=== PATIENT | male | born 1990 | race Caucasian/White ===

== ENCOUNTER 2021-04-08 18:01 | Emergency (ER) | payer BC, SELFPAY ==
[2021-04-08] MEDS ORDERED: NA CHLORIDE 0.9% 2,000 ML ONE (19:44)
[2021-04-08] MEDS ORDERED: Ringers Lactate 1,000 ML IV ONE (20:03)
[2021-04-08 20:09] LABS: Protime INR 1.3
[2021-04-08 20:10] LABS: Absolute Lymphocytes (CBC) 0.8 K/uL (0.7-4.9); Basophils % 0.4 % (0-1.3); Hematocrit 43.5 % (39.6-49.0); Lymphocytes % 17.5 % (15.3-44.8); MPV 9.3 fL (7.6-11.3); RBC Red Blood Cell Count 5.31 M/uL (4.33-5.43)
--- NOTE | 2021-04-08 20:14 | RAD REPORT ---
EXAM DESCRIPTION: [facility] Single View04/08/2021 8:07 pm CLINICAL HISTORY: Fever COMPARISON: 2010 FINDINGS: Lungs are mildly hazy bilaterally The heart is normal size IMPRESSION: Lungs are mildly hazy bilaterally suspicious for pneumonia
[2021-04-08 20:17] LABS: Albumin 3.7 g/dL (3.4-5.0); Bilirubin Direct 0.4 mg/dL (0-0.2); Bilirubin Total 1.5 mg/dL (0.2-1.0); C-Reactive Protein 22.7 mg/L (<3.00); Potassium 3.4 mmol/L (3.5-5.1); Protein, Total 7.4 g/dL (6.4-8.2)
[2021-04-08] MEDS ORDERED: CEFTRIAXONE/SWI 1gm 1 GM/10 ML SYR ONE (21:05)
[2021-04-08] MEDS ORDERED: AZITHROMYCIN 500 MG INJ IVPB ONE (21:05)
[2021-04-08] MEDS ORDERED: NA CHLORIDE 0.9% 250 ML ONE (21:05)
--- NOTE | 2021-04-08 21:50 | EDPHYS ---
Physician Documentation [facility] Name: Adal Dunne III Age: 30 yrs Sex: Male : 1990 Arrival Date: 04/08/2021 Time: 18:07 Bed 6 Private MD: ED Physician Denys Arriaga HPI: 04/08 21:17 This 30 yrs old Male presents to ER via Ambulatory with complaints of Cough, jr8 Fever, Abdominal Pain. 21:17 The patient reports fever, not measured (subjective). Onset: The symptoms/episode jr8 began/occurred suddenly, 5 day(s) ago. Modifying factors: The patient has had contact with sick sister. Associated signs and symptoms: Pertinent positives: abdominal pain, chills, cough, nausea, vomiting, diarrhea. Severity of symptoms: At their worst the symptoms were moderate in the emergency department the symptoms are unchanged. The patient has not experienced similar symptoms in the past. The patient has not recently seen a physician. Historical: - Allergies: 18:32 No Known Allergies; tw2 - Home Meds: 18:32 None [Active]; tw2 - PMHx: 18:32 Migraines; broken great toe right; tw2 - PSHx: 18:32 None; tw2 - Immunization history:: Adult Immunizations. - Social history:: Smoking status: . ROS: 21:46 Eyes: Negative for injury, pain, redness, and discharge, ENT: Negative for injury, jr8 pain, and discharge, Neck: Negative for injury, pain, and swelling, Cardiovascular: Negative for chest pain, palpitations, and edema, Back: Negative for injury and pain, MS/Extremity: Negative for injury and deformity, Skin: Negative for injury, rash, and discoloration, Neuro: Negative for headache, weakness, numbness, tingling, and seizure. 21:46 Constitutional: Positive for chills, fever, malaise. 21:46 Respiratory: Positive for cough, shortness of breath, Negative for sputum production, wheezing. 21:46 Abdomen/GI: Positive for nausea, vomiting, and diarrhea, abdominal cramps. Exam: 21:46 Eyes: Pupils equal round and reactive to light, extra-ocular motions intact. Lids and jr8 lashes normal. Conjunctiva and sclera are non-icteric and not injected. Cornea within normal limits. Periorbital areas with no swelling, redness, or edema. ENT: Nares patent. No nasal discharge, no septal abnormalities noted. Tympanic membranes are normal and external auditory canals are clear. Oropharynx with no redness, swelling, or masses, exudates, or evidence of obstruction, uvula midline. Mucous membranes moist. Neck: Trachea midline, no thyromegaly or masses palpated, and no cervical lymphadenopathy. Supple, full range of motion without nuchal rigidity, or vertebral point tenderness. No Meningismus. 21:46 Abdomen/GI: Soft, non-tender, with normal bowel sounds. No distension or tympany. No guarding or rebound. No evidence of tenderness throughout. Back: No spinal tenderness. No costovertebral tenderness. Full range of motion. Skin: pale, cool, and moist. Normal color with no rashes, no lesions, and no evidence of cellulitis. MS/ Extremity: Pulses equal, no cyanosis. Neurovascular intact. Full, normal range of motion. Neuro: Awake and alert, GCS 15, oriented to person, place, time, and situation. Cranial nerves II-XII grossly intact. Motor strength 5/5 in all extremities. Sensory grossly intact. Cerebellar exam normal. Normal gait. 21:46 Constitutional: The patient appears alert, awake, obviously ill, uncomfortable. 21:46 Cardiovascular: Rate: tachycardic, Rhythm: regular, Pulses: Pulses are 2+ in right radial artery and left radial artery. Heart sounds: normal, normal S1and S2, no S3 or S4, Edema: is not appreciated. Vital Signs: 18:28 BP 130 / 116; Pulse 122; Resp 17; Temp 98.5(TE); Pulse Ox 96% on R/A; Weight 140.61 kg tw2 (R); Height 5 ft. 11 in. (180.34 cm); Pain 5/10; 19:45 BP 100 / 57; Pulse 93; Resp 22; Pulse Ox 100% on 4 lpm NC; ss 20:57 BP 111 / 59; Pulse 97; Resp 20; Pulse Ox 99% on 2 lpm NC; ss 18:28 Body Mass Index 43.24 (140.61 kg, 180.34 cm) tw2 MDM: 19:13 Patient medically screened. [facility] 21:46 Data reviewed: vital signs, nurses notes, lab test result(s), EKG, radiologic studies, [facility] plain films. Data interpreted: Pulse oximetry: on room air is 99 %. Interpretation: normal. Counseling: I had a detailed discussion with the patient and/or guardian regarding: the historical points, exam findings, and any diagnostic results supporting the discharge/admit diagnosis, lab results, radiology results, the need for outpatient follow up, a family practitioner, to return to the emergency department if symptoms worsen or persist or if there are any questions or concerns that arise at home. Response to treatment: the patient's symptoms have markedly improved after treatment, patient is well hydrated. ED course: Off oxygen and sating at 99% without distress. VS stable at this time. Will d/c home to f/u with PCP if needed. COVID vitamin regimen given to patient. . 04/08 19:12 Order name: BMP [facility] 04/08 19:12 Order name: C-Reactive Protein; Complete Time: 20:18 [facility] 04/08 19:12 Order name: CBC with Diff; Complete Time: 20:17 [facility] 04/08 19:12 Order name: Lactate; Complete Time: 20:17 [facility] 04/08 19:12 Order name: LFT's; Complete Time: 20:18 [facility] 04/08 19:12 Order name: Lipase; Complete Time: 20:18 [facility] 04/08 19:12 Order name: Procalcitonin; Complete Time: 20:36 [facility] 04/08 19:12 Order name: PT-INR; Complete Time: 20:17 [facility] 04/08 19:12 Order name: Ptt, Activated; Complete Time: 20:17 [facility] 04/08 19:13 Order name: Basic Metabolic Panel; Complete Time: 20:18 [facility] 04/08 19:17 Order name: Blood Culture Adult (2) 04/08 21:06 Order name: SARS-COV-2 RT PCR; Complete Time: 21:45 [facility] 04/08 19:12 Order name: CXR XRAY; Complete Time: 20:17 [facility] 04/08 19:12 Order name: EKG; Complete Time: 19:13 [facility] 04/08 19:12 Order name: Cardiac monitoring; Complete Time: 19:45 [facility] 04/08 19:12 Order name: Droplet/Contact Precautions; Complete Time: 19:45 jr04/08 19:12 Order name: EKG - Nurse/Tech; Complete Time: 20:04 04/08 19:12 Order name: IV Start; Complete Time: 19:46 04/08 19:12 Order name: Labs collected and sent; Complete Time: 19:46 04/08 19:12 Order name: O2 Per Protocol; Complete Time: 19:45 04/08 19:12 Order name: O2 Sat Monitoring; Complete Time: 19:45 Administered Medications: 19:44 Drug: Ringers - Lactated Ringers Solution 1000 ml Route: IV; Rate: bolus; Site: left ss antecubital; 20:57 Follow up: IV Status: Completed infusion; IV Intake: 1000ml ss 20:45 Drug: Rocephin (cefTRIAXone) 1 grams Route: IV; Rate: calculated rate; Site: right hand;rr5 22:12 Follow up: Response: No adverse reaction; IV Status: Completed infusion; IV Intake: 10mlem 20:51 Dru mg of (Zithromax (azithromycin) 500 mg, NS 0.9% 250 ml) Route: IVPB; Infused rr5 Over: 1 hrs; Site: right hand; 22:12 Follow up: Response: No adverse reaction; IV Status: Completed infusion; IV Intake: em 250ml 21:00 Drug: NS 0.9% 1000 ml Route: IV; Rate: 1000 ml; Site: right hand; ss 22:13 Follow up: IV Status: Completed infusion; IV Intake: 1000ml em Disposition: 04/09 07:05 Co-signature as Attending Physician, Denys Arriaga MD I agree with the assessment and kdr plan of care. Disposition: 04/08/21 21:49 Discharged to Home. Impression: SARS-associated coronavirus as the cause of diseases classified elsewhere, Dehydration. - Condition is Stable. - Discharge Instructions: Dehydration, Adult, COVID-19. - Prescriptions for Imodium A- D 2 mg Oral tablet - take 2 tablet by ORAL route as directed after 1st loose stool and 1 tablet (2 mg) after each next bowel movement; do not exceed 16 mg in 24hrs; 12 tablet. promethazine 25 mg Oral Tablet - take 1 tablet by ORAL route every 6 hours As needed; 20 tablet. - Medication Reconciliation Form, Thank You Letter, Antibiotic Education, Prescription Opioid Use form. - Follow up: Private Physician; When: 5 - 6 days; Reason: Recheck today's complaints, Continuance of care, Re-evaluation by your physician. - Problem is new. - Symptoms have improved. Signatures: Dispatcher [employer] [facility] Denys Arriaga MD MD [facility] Dre Lui RN RN em Tracie Ramesh RN RN James Do PA PA jr8 Naa Lezama RN RN tw2 Tamir Delvalle RN RN rr5 Corrections: (The following items were deleted from the chart) 04/08 19:57 19:13 CORONAVIRUS+MR.LAB.BRZ ordered. [facility] 22:14 21:49 04/08/2021 21:49 Discharged to Home. Impression: SARS-associated coronavirus as em the cause of diseases classified elsewhere; Dehydration. Condition is Stable. Forms are Medication Reconciliation Form, Thank You Letter, Antibiotic Education, Prescription Opioid Use. Follow up: Private Physician; When: 5 - 6 days; Reason: Recheck today's complaints, Continuance of care, Re-evaluation by your physician. Problem is new. Symptoms have improved. jr8
--- NOTE | 2021-04-08 21:50 | ER ---
Nurse's Notes [facility] Name: Adal Dunne III Age: 30 yrs Sex: Male : 1990 Arrival Date: 04/08/2021 Time: 18:07 Bed 6 Private MD: Diagnosis: SARS-associated coronavirus as the cause of diseases classified elsewhere;Dehydration Presentation: 04/08 18:28 Chief complaint: Patient states: i have been sick for about 5 days now. the cough has tw2 been so severe that my stomach hurts, i cant eat, i have diarrhea, i have been running fever off and on. Coronavirus screen: cough unrelated to allergies, diarrhea, difficulty breathing, fatigue, fever, muscle pain, nausea, Client presents with at least one sign or symptom that may indicate coronavirus-19. Standard/surgical mask placed on the client. Provider contacted for isolation considerations. Ebola Screen: Patient denies travel to an Ebola-affected area in the 21 days before illness onset. Initial Sepsis Screen: Does the patient meet any 2 criteria? HR > 90 bpm. Does the patient have a suspected source of infection? No. Patient's initial sepsis screen is negative. Risk Assessment: Do you want to hurt yourself or someone else? Patient reports no desire to harm self or others. Onset of symptoms was April 08, 2021. 18:28 Method Of Arrival: Ambulatory tw2 18:28 Acuity: LATIA 2 tw2 Triage Assessment: 18:32 General: Appears uncomfortable, ill, obese, Behavior is calm, cooperative, appropriate tw2 for age. Pain: Complains of pain in abdomen. EENT: Reports nasal congestion. Respiratory: Reports cough that is non-productive. GI: Reports cramping. Historical: - Allergies: 18:32 No Known Allergies; tw2 - Home Meds: 18:32 None [Active]; tw2 - PMHx: 18:32 Migraines; broken great toe right; tw2 - PSHx: 18:32 None; tw2 - Immunization history:: Adult Immunizations. - Social history:: Smoking status: . Screenin:33 Abuse screen: Denies threats or abuse. Denies injuries from another. Nutritional ss screening: No deficits noted. Tuberculosis screening: Never had TB. Fall Risk None identified. Assessment: 19:10 General: Appears uncomfortable, ill, obese, Behavior is cooperative, anxious, Reports ss chills for >3 days, fever for > 3 days, feeling ill for > 3 days, fatigue for >3 days. Pain: Complains of pain in abdomen Pain currently is 5 out of 10 on a pain scale. Quality of pain is described as "from coughing" is tender Pain began 5 days ago Is continuous, Aggravated by coughing. Cardiovascular: Capillary refill < 3 seconds is brisk in bilateral fingers Patient's skin is warm and dry. Respiratory: Reports shortness of breath on exertion since x 5 days cough that is non-productive, since x 5 days Breath sounds are diminished in left posterior lower lobe and right posterior lower lobe. GI: Bowel sounds present X 4 quads. Abd is soft X 4 quads Abdomen is tender to palpation in abdomen Reports diarrhea, nausea, Patient currently denies vomiting. : Denies burning with urination, urinary frequency. EENT: Oral mucosa is moist. Throat is clear. Derm: Skin is intact, is healthy with good turgor, Skin is dry, Skin is pale. Musculoskeletal: Range of motion: intact in all extremities. 20:35 Reassessment: Patient appears in no apparent distress at this time. awaiting for all ss test to result at this time. Patient states feeling better. Neuro: Level of Consciousness is awake. Respiratory: Respiratory effort is even, unlabored. 21:07 Reassessment: Removed NC from patient. Pt attempted to provide urine specimen at this ss time. Unable to void. Second Liter of IV fluid administered now and Water given to patient upon request. PT notified that he is COVID +, verbalizes understanding. Vital Signs: 18:28 BP 130 / 116; Pulse 122; Resp 17; Temp 98.5(TE); Pulse Ox 96% on R/A; Weight 140.61 kg tw2 (R); Height 5 ft. 11 in. (180.34 cm); Pain 5/10; 19:45 BP 100 / 57; Pulse 93; Resp 22; Pulse Ox 100% on 4 lpm NC; ss 20:57 BP 111 / 59; Pulse 97; Resp 20; Pulse Ox 99% on 2 lpm NC; ss 18:28 Body Mass Index 43.24 (140.61 kg, 180.34 cm) tw2 ED Course: 18:07 Patient arrived in ED. mr 18:19 Denys Arriaga MD is Attending Physician. kdr 18:31 Triage completed. tw2 18:33 Arm band placed on. tw2 19:09 James Do PA is PHCP. jr8 19:09 Denys Arriaga MD is Attending Physician. jr8 19:17 Tamir Delvalle, ZACHARIAH is Primary Nurse. rr5 19:20 Inserted saline lock: 20 gauge in right hand, using aseptic technique. ,using aseptic ss technique. inserted by stephenie SONI Blood collected. 19:33 Patient has correct armband on for positive identification. Bed in low position. Call ss light in reach. secured entrance monitor on. Pulse ox on. NIBP on. Warm blanket given. 19:40 Stephenie Ramesh RN is Primary Nurse. ss 19:41 Inserted saline lock: 20 gauge in left antecubital area, using aseptic technique. Blood ss collected. 20:07 CXR XRAY In Process Unspecified. EDMS 22:11 No provider procedures requiring assistance completed. Patient did not have IV access em during this emergency room visit. Administered Medications: 19:44 Drug: Ringers - Lactated Ringers Solution 1000 ml Route: IV; Rate: bolus; Site: left ss antecubital; 20:57 Follow up: IV Status: Completed infusion; IV Intake: 1000ml ss 20:45 Drug: Rocephin (cefTRIAXone) 1 grams Route: IV; Rate: calculated rate; Site: right hand;rr5 22:12 Follow up: Response: No adverse reaction; IV Status: Completed infusion; IV Intake: 10mlem 20:51 Dru mg of (Zithromax (azithromycin) 500 mg, NS 0.9% 250 ml) Route: IVPB; Infused rr5 Over: 1 hrs; Site: right hand; 22:12 Follow up: Response: No adverse reaction; IV Status: Completed infusion; IV Intake: em 250ml 21:00 Drug: NS 0.9% 1000 ml Route: IV; Rate: 1000 ml; Site: right hand; ss 22:13 Follow up: IV Status: Completed infusion; IV Intake: 1000ml em Intake: 20:57 IV: 1000ml; Total: 1000ml. ss 22:12 IV: 10ml; Total: 1010ml. em 22:12 IV: 250ml; Total: 1260ml. em 22:13 IV: 1000ml; Total: 2260ml. em Outcome: 21:49 Discharge ordered by . siobhan 22:11 Discharged to home ambulatory. em 22:11 Condition: stable 22:11 Discharge instructions given to patient, Instructed on discharge instructions, follow up and referral plans. medication usage, Demonstrated understanding of instructions, follow-up care, medications, Prescriptions given X 2. 22:14 Patient left the ED. em Signatures: Dispatcher [employer] [facility] Denys Arriaga MD MD [facility] Ann Sr Edgar, RN RN em Stephenie Ramesh, RN RN James Do PA PA jr8 Naa Lezama RN RN tw2 Tamir Delvalle RN RN rr5 Corrections: (The following items were deleted from the chart) 18:55 18:28 Acuity: LATIA 3 tw2 tw2 19:41 19:20 Inserted saline lock: 22 gauge in right hand, using aseptic technique. ,using ss aseptic technique. inserted by stephenie SONI Blood collected. rr5
[2021-04-08 22:25] VITALS: TEMP 98.5
[2021-04-08 22:29] VITALS: BP 111/59; O2SAT 99
== END 2021-04-08 22:14 | disposition home or self-care (01) ==
LOC: ER 18:01
DX: U07.1 COVID-19 (principal); E86.0 Dehydration
CPT/HCPCS: 36415; 71045; 80048; 80076; 83605; 83690; 84145; 85025; 85610; 85730; 86140; 87040; 93005; 99284; J0456; J0696; J7030; J7050; J7120; U0003

== ENCOUNTER 2021-04-09 20:15 | Inpatient (IN) | payer SELFPAY ==
[2021-04-09] MEDS ORDERED: ACETAMINOPHEN 500 MG TAB ONE (21:16)
[2021-04-09] MEDS ORDERED: NA CHLORIDE 0.9% 1,000 ML ONE (23:06)
[2021-04-09 23:14] LABS: Absolute Lymphocytes (CBC) 0.5 K/uL (0.7-4.9); Basophils % 0.5 % (0-1.3); Hematocrit 40.9 % (39.6-49.0); Lymphocytes % 12.7 % (15.3-44.8); MPV 9.1 fL (7.6-11.3); RBC Red Blood Cell Count 4.99 M/uL (4.33-5.43)
[2021-04-09 23:19] LABS: Protime INR 1.37
[2021-04-09] MEDS ORDERED: dexAMETHasone 10 MG/ML VIAL ONE (23:21)
--- NOTE | 2021-04-10 00:29 | P.HP ---
Certification for Inpatient Patient admitted to: Inpatient With expected LOS: >2 Midnights Patient will require the following post-hospital care: None Practitioner: I am a practitioner with admitting privileges, knowledge of patient current condition, hospital course, and medical plan of care. Services: Services provided to patient in accordance with Admission requirements found in Title 42 Section 412.3 of the Code of Federal Regulations Patient History Date of Service: 04/10/21 Primary Care Provider: none Reason for admission: COVID-19 pneumonia, dyspnea History of Present Illness: 30-year-old male with obesity presents emergency department for shortness of breath. Patient reports increasing shortness of breath over the course of the last 4-5 days, patient tested positive for COVID-19 on 04/09/2021 here in the emergency department but has had increasing shortness of breath and continuous fevers. Patient dyspneic, tachypneic with respiratory rate around 31 with some mild to moderate accessory muscle use, saturations in the low 90s, chest x-ray remarkable for viral pneumonia. Patient did not receive vaccine. Patient given IV steroids in the emergency department, ED provider wishes to admit for further evaluation and management . 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 moist/pink Neck: Supple, 2+ carotid pulse no bruit, No LAD Respiratory: Clear to auscultation bilaterally, Normal air movement Cardiovascular: Regular rate/rhythm, Normal S1 S2 Gastrointestinal: Normal bowel sounds, No tenderness Musculoskeletal: No tenderness Integumentary: No rashes Neurological: Normal gait, Normal speech, Normal strength at 5/5 x4 extr, Normal tone, Normal affect - Studies Laboratory Data (last 24 hrs) 04/09/21 23:00: PT 15.8 H, INR 1.37 04/09/21 23:00: WBC 3.80 L D, Hgb 14.3, Hct 40.9, Plt Count 136 L Assessment and Plan - Plan Assessment Dyspnea, tachypnea secondary to COVID-19 pneumonia Obesity Plan Dyspnea, tachypnea secondary to COVID-19 pneumonia: Continue with IV steroids, oral supplements. Pulmonology consulted, supplemental oxygen as needed to maintain saturations greater than 92%. Daily CRP/ferritin levels, will give ivermectin. Anticipate clinical improvement over the course of the next 24-48 hr. DVT prophylaxis Lovenox 40 mg subcutaneous once daily. Appreciate further input from pulmonology. Obesity: Discussed lifestyle changes. Discharge Plan: Home Plan to discharge in: 48 Hours - Advance Directives Does patient have a Living Will: No Does patient have a Durable POA for Healthcare: No - Code Status/Comfort Care Code Status Assessed: Yes (Full code) Critical Care: No Time Spent Managing Pts Care (In Minutes): 55
[2021-04-10 00:34] LABS: Albumin 3.5 g/dL (3.4-5.0); Bilirubin Direct 0.2 mg/dL (0-0.2); Bilirubin Total 0.9 mg/dL (0.2-1.0); Magnesium 1.9 mg/dL (1.8-2.4); Potassium 3.2 mmol/L (3.5-5.1); Troponin (Emerg Dept Use Only) 0.05 ng/mL (0.0-0.045)
[2021-04-10 00:56] LABS: C-Reactive Protein 36.3 mg/L (<3.00); Ferritin 475.6 ng/mL (26-388)
[2021-04-10] MEDS ORDERED: ONDANSETRON 4 MG/2 ML VIAL IV PRN (01:35)
[2021-04-10] MEDS ORDERED: ASPIRIN 81 MG CHEWABLE TABLET ONE (01:40)
[2021-04-10] MEDS ORDERED: ENOXAPARIN 100 MG/ML SYR SQ ONE (01:41)
--- NOTE | 2021-04-10 01:43 | ER ---
Nurse's Notes [facility] Name: Adal Dunne III Age: 30 yrs Sex: Male : 1990 Arrival Date: 04/09/2021 Time: 20:16 Bed 16 Private MD: Diagnosis: Other viral pneumonia Presentation: 04/09 20:31 Chief complaint: Patient states: Shortness of breath for about 3-4 days, Covid Positive vg1 results here in ED. Coronavirus screen: Client denies travel out of the [place] in the last 14 days. Coronavirus screen: Client presents with at least one sign or symptom that may indicate coronavirus-19. Standard/surgical mask placed on the client. Ebola Screen: Patient negative for fever greater than or equal to 101.5 degrees Fahrenheit, and additional compatible Ebola Virus Disease symptoms. Initial Sepsis Screen: Does the patient meet any 2 criteria? RR > 20 per min. HR > 90 bpm. Yes Does the patient have a suspected source of infection? Yes:. Risk Assessment: Do you want to hurt yourself or someone else? Patient reports no desire to harm self or others. Onset of symptoms was April 05, 2021. 20:31 Method Of Arrival: Ambulatory vg1 20:31 Acuity: LATIA 3 vg1 Triage Assessment: 20:36 General: Appears in no apparent distress. uncomfortable, Behavior is calm, cooperative. vg1 Pain: Complains of pain in chest and abdomen. Respiratory: Reports shortness of breath cough that is Onset: The symptoms/episode began/occurred about 3-4, the patient has moderate shortness of breath. Historical: - Allergies: 20:36 No Known Allergies; vg1 - Home Meds: 20:36 None [Active]; vg1 - PMHx: 20:36 broken great toe right; Migraines; vg1 - Immunization history:: Adult Immunizations up to date. - Social history:: Smoking status: Patient denies any tobacco usage or history of. Screenin:30 Abuse screen: Denies threats or abuse. Denies injuries from another. Nutritional wh screening: No deficits noted. Tuberculosis screening: No symptoms or risk factors identified. Fall Risk None identified. Assessment: 20:44 Reassessment: Pt placed on 2L NC. vg1 22:15 General: Appears in no apparent distress. Behavior is calm, cooperative, appropriate for age. Pain: Denies pain. Neuro: Level of Consciousness is awake, alert, obeys commands, Oriented to person, place, time, situation, Appropriate for age. Cardiovascular: Heart tones S1 S2 Rhythm is sinus tachycardia. Respiratory: Reports shortness of breath Airway is patent Respiratory effort is even, labored, Respiratory pattern is tachypnea Breath sounds are clear bilaterally. GI: Abdomen is round non-distended. : No signs and/or symptoms were reported regarding the genitourinary system. EENT: No signs and/or symptoms were reported regarding the EENT system. Derm: Skin is intact, is healthy with good turgor, Skin is pink, warm \T\ dry. normal. Musculoskeletal: Circulation, motion, and sensation intact. 04/10 00:00 Reassessment: Patient appears in no apparent distress at this time. No changes from previously documented assessment. Patient and/or family updated on plan of care and expected duration. Pain level reassessed. Patient is alert, oriented x 3, equal unlabored respirations, skin warm/dry/pink. Provider at bedside explaining POC need for admit. 01:30 Reassessment: Patient appears in no apparent distress at this time. Patient and/or family updated on plan of care and expected duration. Pain level reassessed. Patient is alert, oriented x 3, equal unlabored respirations, skin warm/dry/pink. Vital Signs: 04/09 20:31 BP 122 / 82; Pulse 125; Resp 26; Temp 103.1(O); Pulse Ox 93% on R/A; Weight 140.61 kg; vg1 Height 5 ft. 11 in. (180.34 cm); Pain 5/10; 23:00 BP 124 / 86; Pulse 103; Resp 30; Pulse Ox 98% on 2 lpm NC; wh 04/10 00:25 BP 124 / 89; Pulse 107; Resp 36 S; Temp 99.5(O); Pulse Ox 98% on 2 lpm NC; bb 01:38 BP 140 / 81; Pulse 105; Resp 26; Pulse Ox 96% on 2 lpm NC; wh 04/09 20:31 Body Mass Index 43.24 (140.61 kg, 180.34 cm) vg1 ED Course: 04/09 20:16 Patient arrived in ED. bp1 20:36 Triage completed. vg1 20:36 Arm band placed on. vg1 22:09 Chandni Nugent, RN is Primary Nurse. 22:13 Abram Lima PA is PHCP. cp 22:13 Renato Negron MD is Attending Physician. cp 22:30 Patient has correct armband on for positive identification. Bed in low position. Call light in reach. Side rails up X 1. monitoring manager on. Pulse ox on. NIBP on. 22:36 XRAY Chest (1 view) In Process Unspecified. EDMT 22:45 Inserted saline lock: 20 gauge in left antecubital area, using aseptic technique. Blood collected. 04/10 01:41 Jose Carlos Dumont FNP-C is Hospitalizing Provider. 01:43 No provider procedures requiring assistance completed. Patient admitted, IV remains in place. Administered Medications: 04/09 20:59 Drug: Tylenol 1000 mg Route: PO; 04/10 01:30 Follow up: Response: No adverse reaction; Temperature is decreased 04/09 23:08 Drug: NS 0.9% 1000 ml Route: IV; Rate: 1 bolus; Site: left antecubital; 04/10 01:30 Follow up: Response: No adverse reaction; IV Status: Completed infusion 04/09 23:10 Drug: Dexamethasone 10 mg Route: IVP; Site: left antecubital; 04/10 01:30 Follow up: Response: No adverse reaction 01:29 Drug: Lovenox (enoxaparin) 100 mg Route: Sub-Q; Site: left lower abdomen; 01:45 Follow up: Response: No adverse reaction 01:30 Drug: Aspirin Chewable Tablet 324 mg Route: PO; 01:45 Follow up: Response: No adverse reaction Outcome: 01:42 Decision to Hospitalize by Provider. cp 01:44 Admitted to ICU accompanied by tech, via wheelchair, room 1, with chart, Report called to Jennifer Morales RN 01:44 Condition: stable 01:44 Instructed on the need for admit. 02:36 Patient left the ED. Signatures: Dispatcher [employer] Hemalatha La RN RN Abram Lima PA PA cp Habalo, Winsy, RN RN Laly Petit RN RN vg1 Marge Retana bp1 Corrections: (The following items were deleted from the chart) 01:43 01:38 BP 140 / 81; Pulse 105bpm; Resp 24bpm; Pulse Ox 96% 2 lpm Nasal Cannula; wh wh
--- NOTE | 2021-04-10 01:43 | EDPHYS ---
Physician Documentation [facility] Name: Adal Dunne III Age: 30 yrs Sex: Male : 1990 Arrival Date: 04/09/2021 Time: 20:16 Bed 16 Private MD: ED Physician Renato Negron HPI: 04/09 22:30 This 30 yrs old Male presents to ER via Ambulatory with complaints of Covid+, cp Shortness Of Breath, Breathing Difficulty, Weakness. 22:30 The patient has shortness of breath at rest. cp 22:30 Onset: The symptoms/episode began/occurred 4 day(s) ago, and became worse today. cp Duration: The symptoms are continuous, and are steadily getting worse. Associated signs and symptoms: Pertinent positives: non-productive cough, fever, Pertinent negatives: chest pain, vomiting. Patient reports being seen in this ED yesterday and diagnosed with COVID-19. Historical: - Allergies: 20:36 No Known Allergies; vg1 - Home Meds: 20:36 None [Active]; vg1 - PMHx: 20:36 broken great toe right; Migraines; vg1 - Immunization history:: Adult Immunizations up to date. - Social history:: Smoking status: Patient denies any tobacco usage or history of. ROS: 22:35 Constitutional: Positive for fever, Negative for poor PO intake. cp 22:35 Eyes: Negative for injury, pain, redness, and discharge. cp 22:35 ENT: Negative for ear pain, sore throat, difficulty swallowing, difficulty handling secretions. 22:35 Cardiovascular: Negative for chest pain, edema, palpitations. 22:35 Respiratory: Positive for cough, shortness of breath. 22:35 Abdomen/GI: Negative for abdominal pain, vomiting, diarrhea, constipation. 22:35 Skin: Negative for rash. 22:35 Neuro: Negative for altered mental status, headache, syncope, weakness. 22:35 All other systems are negative. Exam: 22:40 Constitutional: The patient appears in no acute distress, alert, awake, cp non-diaphoretic, non-toxic, well developed, well nourished, obese. 22:40 Head/Face: Normocephalic, atraumatic. cp 22:40 Eyes: Periorbital structures: appear normal, Conjunctiva: normal, no exudate, no injection, Sclera: no appreciated abnormality, Lids and lashes: appear normal, bilaterally. 22:40 ENT: External ear(s): are unremarkable, Nose: is normal, Mouth: Lips: moist, Oral mucosa: moist, Posterior pharynx: Airway: no evidence of obstruction, patent. 22:40 Neck: ROM/movement: is normal, is supple, no meningismus, no nuchal rigidity. 22:40 Chest/axilla: Inspection: normal, Palpation: is normal, no crepitus, no tenderness. 22:40 Cardiovascular: Rate: tachycardic, Rhythm: regular, Edema: is not appreciated, JVD: is not appreciated. 22:40 Respiratory: mild respiratory distress is noted, Respirations: intercostal retractions, are absent, shallow respirations, that is mild, Breath sounds: bronchial sounds, that are mild, are heard diffusely, stridor, is not appreciated, wheezing: is not appreciated. 22:40 Abdomen/GI: Inspection: abdomen appears normal, Palpation: abdomen is soft and non-tender, in all quadrants. 22:40 Skin: no rash present. 22:40 Neuro: Orientation: to person, place \T\ time. Mentation: is normal, Motor: moves all fours, strength is normal, Sensation: is normal. 23:00 ECG was reviewed by the Attending Physician. Vital Signs: 20:31 BP 122 / 82; Pulse 125; Resp 26; Temp 103.1(O); Pulse Ox 93% on R/A; Weight 140.61 kg; vg1 Height 5 ft. 11 in. (180.34 cm); Pain 5/10; 23:00 BP 124 / 86; Pulse 103; Resp 30; Pulse Ox 98% on 2 lpm NC; 04/10 00:25 BP 124 / 89; Pulse 107; Resp 36 S; Temp 99.5(O); Pulse Ox 98% on 2 lpm NC; bb 01:38 BP 140 / 81; Pulse 105; Resp 26; Pulse Ox 96% on 2 lpm NC; 04/09 20:31 Body Mass Index 43.24 (140.61 kg, 180.34 cm) vg1 MDM: 04/09 22:16 Patient medically screened. 04/10 01:45 Data reviewed: vital signs, nurses notes. 01:45 Test interpretation: by ED physician or midlevel provider: ECG, plain radiologic cp studies. 01:45 Response to treatment: the patient's symptoms have mildly improved after treatment, and cp as a result, I will admit patient. Physician consultation: Jose Carlos Dumont ДМИТРИЙ was called at 00:30, was contacted at 00:30, regarding admission, to the telemetry unit. patient's condition, and will see patient in ED, shortly. 04/09 22:27 Order name: Basic Metabolic Panel 04/09 22:27 Order name: CBC with Diff; Complete Time: 00:25 cp 04/09 22:27 Order name: LFT's; Complete Time: 01: cp 04/09 22:27 Order name: Magnesium; Complete Time: : 04/09 22:27 Order name: NT PRO-BNP; Complete Time: 01: cp 04/09 22:27 Order name: PT-INR; Complete Time: 00:25 04/09 22:27 Order name: Troponin (emerg Dept Use Only); Complete Time: 01: 04/09 22:28 Order name: Basic Metabolic Panel; Complete Time: 01:01 EDNM 04/09 22:50 Order name: D-Dimer 04/09 22:52 Order name: CRP 04/09 23:05 Order name: D-Dimer; Complete Time: 00:25 EDNM 04/09 22:17 Order name: XRAY Chest (1 view) 04/09 22:27 Order name: EKG; Complete Time: 22:28 04/09 22:27 Order name: Cardiac monitoring; Complete Time: 23: 04/09 22:27 Order name: EKG - Nurse/Tech; Complete Time: 23:11 cp 04/09 22:27 Order name: IV Saline Lock; Complete Time: 23:11 cp 04/09 22:27 Order name: Labs collected and sent; Complete Time: 23: cp 04/09 22:27 Order name: O2 Per Protocol; Complete Time: 23:11 cp 04/09 22:27 Order name: O2 Sat Monitoring; Complete Time: 23:11 cp 04/09 23:05 Order name: C-Reactive Protein; Complete Time: 01:01 EDNM 04/09 23:05 Order name: Ferritin; Complete Time: :01 EDMS 04/10 00:05 Order name: CT Chest For PE Angio cp EC/11 23:00 Rate is 114 beats/min. Rhythm is regular. WI interval is normal. QRS interval is cp normal. QT interval is normal. Interpreted by me. Reviewed by me. Administered Medications: 20:59 Drug: Tylenol 1000 mg Route: PO; 04/10 01:30 Follow up: Response: No adverse reaction; Temperature is decreased 04/09 23:08 Drug: NS 0.9% 1000 ml Route: IV; Rate: 1 bolus; Site: left antecubital; 04/10 01:30 Follow up: Response: No adverse reaction; IV Status: Completed infusion 04/09 23:10 Drug: Dexamethasone 10 mg Route: IVP; Site: left antecubital; 04/10 01:30 Follow up: Response: No adverse reaction 01:29 Drug: Lovenox (enoxaparin) 100 mg Route: Sub-Q; Site: left lower abdomen; 01:45 Follow up: Response: No adverse reaction :30 Drug: Aspirin Chewable Tablet 324 mg Route: PO; 01:45 Follow up: Response: No adverse reaction Disposition: 06:23 Co-signature as Attending Physician, Renato Negron MD. [email or web address] Disposition: 04/10/21 01:42 Hospitalization ordered by Jose Carlos Dumont for Inpatient Admission. Preliminary diagnosis is Other viral pneumonia. - Bed requested for Intensive Care Unit. - Status is Inpatient Admission. - Condition is Stable. - Problem is an ongoing problem. - Symptoms have improved. Signatures: Dispatcher [employer] EDNM Hemalatha Dial RN RN bb Attema, Lee, FNP-C [facility] Abram Lima PA PA cp Garcia, Cindy, RN RN Chandni Nugent RN RN Laly Petit RN RN vg1 Renato Negron MD MD [email or web address] Corrections: (The following items were deleted from the chart) 04/09 23:05 22:50 D-Dimer ordered. EDNM EDNM 23:05 22:50 FERRITIN+C.LAB.BRZ ordered. EDNM EDNM 23:05 22:52 C-Reactive Protein ordered. EDNM EDNM 04/10 01:44 01:42 Hospitalization Ordered by Jose Carlos Attema [facility] for Inpatient Admission. Preliminary cg diagnosis is Other viral pneumonia. Bed requested for Telemetry/MedSurg (Inpatient). Status is Inpatient Admission. Condition is Stable. Problem is an ongoing problem. Symptoms have improved. cp 02:36 01:44 04/10/2021 01:42 Hospitalization Ordered by Jose Carlos CHOE for Inpatient Admission. Preliminary diagnosis is Other viral pneumonia. Bed requested for Intensive Care Unit. Status is Inpatient Admission. Condition is Stable. Problem is an ongoing problem. Symptoms have improved. cg
[2021-04-10] MEDS ORDERED: POTASSIUM 25 MEQ EFFERV TAB PO ONE (02:07)
[2021-04-10] MEDS: MELATONIN 5 MG TABLET PO PRN ×2 (03:15→21:15)
[2021-04-10] MEDS: BENZONATATE 100 MG CAP PO PRN ×3 (03:15→21:15)
[2021-04-10] MEDS ORDERED: MELATONIN 5 MG TABLET PO ONE (03:31)
[2021-04-10] MEDS ORDERED: POTASSIUM 25 MEQ EFFERV TAB ONE (03:31)
[2021-04-10] MEDS ORDERED: BENZONATATE 100 MG CAP PO ONE (03:32)
[2021-04-10 03:52] VITALS: BMI 51.5
[2021-04-10 05:22] LABS: Absolute Lymphocytes (CBC) 0.3 K/uL (0.7-4.9); Basophils % 0.2 % (0-1.3); Hematocrit 40.9 % (39.6-49.0); RBC Red Blood Cell Count 4.93 M/uL (4.33-5.43)
[2021-04-10 05:44] LABS: ALT/SGPT 51 U/L (12-78); AST/SGOT 85 U/L (15-37); Albumin 3.4 g/dL (3.4-5.0); Alkaline Phosphatase 59 U/L (45-117); BUN Blood Urea Nitrogen 10 mg/dL (7-18); Bicarbonate 26 mmol/L (21-32); Bilirubin Total 0.9 mg/dL (0.2-1.0); Ferritin 443.4 ng/mL (26-388); Glucose Level 152 mg/dL (74-106); Potassium 4.1 mmol/L (3.5-5.1); Protein, Total 6.5 g/dL (6.4-8.2); Sodium Level 140 mmol/L (136-145); Troponin I 0.04 ng/mL (0.0-0.045)
--- NOTE | 2021-04-10 05:55 | P.PN ---
Subjective Date of Service: 04/10/21 Primary Care Provider: none Chief Complaint: COVID-19 pneumonia, dyspnea Subjective: Other (Patient recently diagnosed with Covid 19. T-max 103.1. Fever resolved. Still with slight cough. Patient given IV fluid in the emergency room.) Physical Examination - Vital Signs Temperature: 99.5 F Blood Pressure: 140/81 Pulse: 105 Respirations: 26 - Studies Laboratory Data (last 24 hrs) 04/09/21 23:00: PT 15.8 H, INR 1.37 04/09/21 23:00: WBC 3.80 L D, Hgb 14.3, Hct 40.9, Plt Count 136 L 04/09/21 23:00: Sodium 140, Potassium 3.2 L, BUN 11, Creatinine 1.06, Glucose 105, Magnesium 1.9, Total Bilirubin 0.9, AST 92 H, ALT 51, Alkaline Phosphatase 64 Assessment & Plan Discharge Plan: Home Plan to discharge in: 48 Hours Physician Review Additional Text: Physical Exam: GENERAL: The patient is a well-developed. patient alert oriented x3. Patient appears dry. VITAL SIGNS: Reviewed HEENT: Nares patent. Dry mucous membranes NECK: Supple. No carotid bruits. No lymphadenopathy or thyromegaly. LUNGS: Decreased at the bases bilateral. HEART: Regular rate and rhythm, no appreciable gallops, rubs, murmurs or extra heart sounds ABDOMEN: Soft, nontender, and nondistended. Positive bowel sounds. No hepatosplenomegaly was noted. EXTREMITIES: Without any cyanosis, clubbing, rash, lesions or peripheral edema. NEUROLOGIC: The patient is oriented to person, place and time. Strength and sensation are grossly intact. Face is symmetric. SKIN: Normal color, turgor and temperature. No ulcerations or rashes noted. Impression: Dyspnea, tachypnea with hypoxia secondary to bilateral COVID19 pneumonia Suspect underlying obstructive sleep apnea Hyperglycemia suspect prediabetes Morbid obesity, BMI 51.5 Plan: Dyspnea, tachypnea with hypoxia secondary to bilateral COVID19 pneumonia: Patient currently on 2 L per nasal cannula. Continue to monitor CRP and ferritin. Recheck chest x-ray tomorrow. Encourage incentive spirometer. Encourage proning. Patient on DVT prophylaxisLovenox. Continue IV Solu-Medrol and vitamin supplementation. Likely no need for remdesivir at this time. Will set up for home oxygen as the patient will likely require this at discharge. Anticipate improvement over the next 24 hours likely discharge tomorrow if improved. Will discuss with pulmonology. Suspect underlying obstructive sleep apnea: Patient may have underlying sleep apnea. This can be further evaluated as an outpatient. Will discuss with pulmonology. Hyperglycemia suspect prediabetes: Blood sugar was slightly elevated today likely from IV steroids. Will check hemoglobin A1c. Morbid obesity, BMI 51.5: Lifestyle modification education provided. Code Status: Full Code DVT prophylaxis: Lovenox Advanced Care Planning-30 minutes: Plan of care for the patient's discharge was discussed in detail with the patient. Patient desires to go home at discharge. Time Spent Managing Pts Care (In Minutes): 55
[2021-04-10 06:02] LABS: Urine Appearance CLEAR (Clear); Urine Bilirubin NEGATIVE (Negative); Urine Blood TRACE (Negative); Urine Color DK YELLOW (Yellow); Urine Glucose NEGATIVE (Negative); Urine Protein 2+ (Negative); Urine Specific Gravity >=1.030 (1.005-1.030); Urine Urobilinogen 0.2 mg/dL (0.2-1.0)
[2021-04-10 06:12] LABS: Urine Microscopic Reflex ORDER UMIC
[2021-04-10 06:13] LABS: Urine Bacteria 20-50 /HPF (NONE SEEN); Urine Mucus 1+ /HPF (NONE SEEN)
--- NOTE | 2021-04-10 08:26 | RAD REPORT ---
EXAM DESCRIPTION: RAD - Chest Single View - 04/09/2021 10:36 pm CLINICAL HISTORY: Cough;SOB, COVID positive COMPARISON: Portable April 08 TECHNIQUE: AP portable chest image was obtained 04/09/2021 10:36 pm . FINDINGS: Lung volumes are low. Patchy airspace opacification is seen scattered in the lung parenchy ma. Pattern is similar or slightly less prominent compared to the April 08 study. Heart and vasculatur e are normal. No measurable pleural effusion and no pneumothorax. No acute bony abnormality seen. No acute aortic findings suspected. IMPRESSION: Mild bilateral COVID-19 pneumonia pattern similar or slightly less prominent than March 30 0.
[2021-04-10] MEDS: IVERMECTIN 3 MG TABLET PO SCH (08:28)
[2021-04-10] MEDS: ASPIRIN EC 81 MG TAB PO SCH (08:28)
[2021-04-10] MEDS: THIAMINE HCL 100 MG TABLET PO SCH (08:28)
[2021-04-10] MEDS: VITAMIN D 1000 UNIT TAB PO SCH (08:28)
[2021-04-10] MEDS: ZINC SULFATE 220 MG CAP PO SCH (08:28)
[2021-04-10] MEDS: METHYLPREDNISOLONE 125 MG INJ IV SCH ×2 (08:29→21:00)
[2021-04-10] MEDS: ENOXAPARIN 40 MG/0.4 ML SQ SCH (08:29)
[2021-04-10] MEDS: ASCORBIC ACID 500 MG TABLET PO SCH ×4 (09:00→21:15)
[2021-04-10] MEDS: ACETAMINOPHEN 500 MG TAB PO PRN ×2 (10:36→16:58)
--- NOTE | 2021-04-10 10:40 | P.PN ---
Subjective Date of Service: 04/10/21 Primary Care Provider: none Chief Complaint: COVID-19 pneumonia, dyspnea Patient is 30 years of age been sick for about a week admitted with thorpe virus pneumonia in complaining of cough fever chills or body weakness the saturation is satisfactory still has significant coughing spell Review of Systems General: Weakness Respiratory: Cough, Shortness of Breath Physical Examination - Vital Signs Temperature: 99.4 F Blood Pressure: 115/77 Pulse: 106 Respirations: 28 Pulse Ox (%): 98 - Studies Laboratory Data (last 24 hrs) 04/09/21 23:00: PT 15.8 H, INR 1.37 04/09/21 23:00: WBC 3.80 L D, Hgb 14.3, Hct 40.9, Plt Count 136 L 04/09/21 23:00: Sodium 140, Potassium 3.2 L, BUN 11, Creatinine 1.06, Glucose 105, Magnesium 1.9, Total Bilirubin 0.9, AST 92 H, ALT 51, Alkaline Phosphatase 64 Assessment & Plan - Problems (Diagnosis) (1) Acute respiratory failure due to severe acute respiratory syndrome coronavirus 2 (SARS-CoV-2) infection Current Visit: Yes Status: Acute Plan: Patient is 30 years of age admitted with respiratory failure from thorpe virus he does have bilateral pneumonia hemodynamically stable oxygenation satisfactory still has significant coughing spells possible discharge tomorrow on oxygen continue with high doses of steroids in ivermectin agree with present therapy
[2021-04-10] MEDS ORDERED: NA CHLORIDE 0.9% 500 ML IV SCH (17:02)
[2021-04-10] MEDS ORDERED: NA CHLORIDE 0.9% 0 ML ONE (17:26)
[2021-04-10] MEDS ORDERED: NA CHLORIDE 0.9% 1,000 ML IV ONE (20:43)
[2021-04-10] MEDS ORDERED: ACETAMINOPHEN 500 MG TAB PO ONE (20:43)
[2021-04-10] MEDS ORDERED: METHYLPREDNISOLONE 40 MG INJ ONE (21:30)
--- NOTE | 2021-04-10 21:40 | RAD REPORT ---
EXAM DESCRIPTION: CT - Chest For Pe Angio - 04/10/2021 6:34 am COMPARISON: None. CLINICAL HISTORY: Cough;SOB TECHNIQUE: CT images through the chest with IV contrast using the pulmonary embolus protocol. Multip lanar reformats. Automated exposure control was utilized on this examination as a dose lowering techn ique. FINDINGS: Pulmonary arteries and vascular: Suboptimal bolus timing. No filling defects. Heart and mediastinum: Heart size is normal. Mediastinal lymph nodes are increased in number but not in size and are likely reactive. Thyroid gland: Visualized portions are normal. Lungs: Multifocal bilateral consolidations are present. Airways: No filling defects. No bronchiectasis. Pleura: No pneumothorax. No significant pleural effusion. Subphrenic structures: Within normal limits. Musculoskeletal and soft tissues: Within normal limits for age. IMPRESSION: 1. No evidence of large proximal pulmonary embolus. Limited evaluation for branch emboli due to suboptimal bolus timing. 2. Commonly reported imaging features of COVID-19 pneumonia are present. Other processes such as in fluenza pneumonia and organizing pneumonia, as can be seen with drug toxicity and connective tissue d isease, can cause similar imaging pattern. Electronically signed by: Sixto Ibrahim MD 04/10/2021 1:50 AM CDT Due to temporary technical issues with the PACS/Fluency reporting system, reports are being signed by the in house radiologists without review as a courtesy to insure prompt reporting. The interpreting radiologist is fully responsible for the content of the report.
[2021-04-11 06:00] LABS: Absolute Lymphocytes (CBC) 0.5 K/uL (0.7-4.9); Basophils % 0.1 % (0-1.3); Hematocrit 39.6 % (39.6-49.0); Lymphocytes % 9.7 % (15.3-44.8); MPV 9.3 fL (7.6-11.3); RBC Red Blood Cell Count 4.76 M/uL (4.33-5.43)
[2021-04-11 06:31] LABS: ALT/SGPT 48 U/L (12-78); AST/SGOT 85 U/L (15-37); Albumin 3.1 g/dL (3.4-5.0); Alkaline Phosphatase 52 U/L (45-117); BUN Blood Urea Nitrogen 12 mg/dL (7-18); Bicarbonate 27 mmol/L (21-32); Bilirubin Total 0.7 mg/dL (0.2-1.0); Ferritin 554.7 ng/mL (26-388); Glucose Level 134 mg/dL (74-106); Magnesium 2.2 mg/dL (1.8-2.4); Potassium 3.9 mmol/L (3.5-5.1); Protein, Total 6.5 g/dL (6.4-8.2); Sodium Level 139 mmol/L (136-145)
[2021-04-11] MEDS: ACETAMINOPHEN 500 MG TAB PO PRN (07:48)
[2021-04-11] MEDS: ASCORBIC ACID 500 MG TABLET PO SCH ×4 (07:49→20:37)
[2021-04-11] MEDS: BENZONATATE 100 MG CAP PO PRN ×2 (07:49→16:29)
[2021-04-11] MEDS: VITAMIN D 1000 UNIT TAB PO SCH (07:49)
[2021-04-11] MEDS: ZINC SULFATE 220 MG CAP PO SCH (07:49)
[2021-04-11] MEDS: ASPIRIN EC 81 MG TAB PO SCH (07:49)
[2021-04-11] MEDS: ENOXAPARIN 40 MG/0.4 ML SQ SCH (07:49)
[2021-04-11] MEDS: THIAMINE HCL 100 MG TABLET PO SCH (07:49)
[2021-04-11] MEDS: METHYLPREDNISOLONE 125 MG INJ IV SCH ×3 (07:56→20:37)
[2021-04-11 08:07] LABS: Blood Morphology Comment NOT SEEN (NOT SEEN); Platelet Estimate ADEQ
--- NOTE | 2021-04-11 09:00 | P.PN ---
Subjective Date of Service: 04/11/21 Primary Care Provider: none Chief Complaint: COVID-19 pneumonia, dyspnea Subjective: Other (Patient had T-max 103. Patient had increase oxygen requirement. Patient received IV fluids yesterday due to tachycardia and fever.) Physical Examination - Vital Signs Temperature: 103 F Blood Pressure: 116/75 Pulse: 114 Respirations: 33 Pulse Ox (%): 93 Assessment & Plan Discharge Plan: Home Plan to discharge in: Greater than 2 days Physician Review Additional Text: CT Scan: FINDINGS: Pulmonary arteries and vascular: Suboptimal bolus timing. No filling defects. Heart and mediastinum: Heart size is normal. Mediastinal lymph nodes are increased in number but not in size and are likely reactive. Thyroid gland: Visualized portions are normal. Lungs: Multifocal bilateral consolidations are present. Airways: No filling defects. No bronchiectasis. Pleura: No pneumothorax. No significant pleural effusion. Subphrenic structures: Within normal limits. Musculoskeletal and soft tissues: Within normal limits for age. IMPRESSION: 1. No evidence of large proximal pulmonary embolus. Limited evaluation for branch emboli due to suboptimal bolus timing. 2. Commonly reported imaging features of COVID-19 pneumonia are present. Other processes such as influenza pneumonia and organizing pneumonia, as can be seen with drug toxicity and connective tissue disease, can cause similar imaging pattern. Physical Exam: GENERAL: The patient is a well-developed. patient alert oriented x3. Patient appears dry. VITAL SIGNS: Reviewed HEENT: Nares patent. Dry mucous membranes NECK: Supple. No carotid bruits. No lymphadenopathy or thyromegaly. LUNGS: Decreased at the bases bilateral. HEART: Regular rate and rhythm, no appreciable gallops, rubs, murmurs or extra heart sounds ABDOMEN: Soft, nontender, and nondistended. Positive bowel sounds. No hepatosplenomegaly was noted. EXTREMITIES: Without any cyanosis, clubbing, rash, lesions or peripheral edema. NEUROLOGIC: The patient is oriented to person, place and time. Strength and sensation are grossly intact. Face is symmetric. SKIN: Normal color, turgor and temperature. No ulcerations or rashes noted. Impression: Dyspnea, tachypnea with hypoxia secondary to bilateral COVID19 pneumonia Suspect underlying obstructive sleep apnea Hyperglycemia suspect prediabetes Morbid obesity, BMI 51.5 Plan: Dyspnea, tachypnea with hypoxia secondary to bilateral COVID19 pneumonia: Patient with T-max of 103. Increase oxygen requirement noted. Currently on 3 L per nasal cannula. Patient may require high flow if this persist. CRP shows slight improvement. Ferritin level showed slight increase to 554. Chest x-ray obtained. No significant improvement noted. Will discuss with pulmonology about the possibility of starting remdesivir. Continue IV Solu-Medrol, vitamin supplementation. Provide medication for fever, cough. Encourage proning, encourage incentive spirometer. We will continue to monitor the patient closely. Anticipated discharge within the next 3 days. I will turn the service over to the hospitalist team tomorrow. I will go plan of care with him. Suspect underlying obstructive sleep apnea: Patient may have underlying sleep apnea. This can be further evaluated as an outpatient. Will discuss with pulmonology. Patient may require CPAP at night Hyperglycemia suspect prediabetes: Hemoglobin A1c 5.5. Blood sugar was slightly elevated today likely from IV steroids. We will monitor this closely. Morbid obesity, BMI 51.5: Lifestyle modification education provided. Code Status: Full Code DVT prophylaxis: Lovenox Advanced Care Planning-30 minutes: Plan of care for the patient's discharge was discussed in detail with the patient. Patient desires to go home at discharge. Time Spent Managing Pts Care (In Minutes): 55
[2021-04-11] MEDS ORDERED: REMDESIVIR (EUA) 200 MG in NA CHLORIDE 0.9% 250 ML IV ONE (11:00)
--- NOTE | 2021-04-11 12:23 | RAD REPORT ---
EXAM DESCRIPTION: RAD - Chest Single View - 04/11/2021 7:05 am CLINICAL HISTORY: follow up COVID pneumonia Chest pain. COMPARISON: Chest Single View dated 04/09/2021; Chest Single View dated 04/08/2021; CHEST SINGLE VIEW dated 12/23/2010 FINDINGS: Portable technique limits examination quality. Little overall change is seen in bilateral pulmonary interstitial lung opacities since 04/09/2021. Th e heart is normal in size. No displaced fractures. IMPRESSION: Stable chest since 04/09/2021.
[2021-04-11] MEDS ORDERED: POTASSIUM CL SA 10 MEQ TAB PO ONE (12:42)
[2021-04-11] MEDS: MELATONIN 5 MG TABLET PO PRN (20:37)
[2021-04-12 05:38] LABS: Absolute Lymphocytes (CBC) 0.5 K/uL (0.7-4.9); Basophils % 0.1 % (0-1.3); Hematocrit 38.1 % (39.6-49.0); Lymphocytes % 9.1 % (15.3-44.8); MPV 8.9 fL (7.6-11.3); RBC Red Blood Cell Count 4.64 M/uL (4.33-5.43)
[2021-04-12 05:52] LABS: ALT/SGPT 55 U/L (12-78); AST/SGOT 106 U/L (15-37); Albumin 3.1 g/dL (3.4-5.0); Alkaline Phosphatase 51 U/L (45-117); BUN Blood Urea Nitrogen 14 mg/dL (7-18); Bicarbonate 28 mmol/L (21-32); Bilirubin Direct 0.2 mg/dL (0-0.2); Ferritin 583.5 ng/mL (26-388); Glucose Level 148 mg/dL (74-106); Magnesium 2.3 mg/dL (1.8-2.4); Potassium 3.8 mmol/L (3.5-5.1); Protein, Total 6.4 g/dL (6.4-8.2); Sodium Level 140 mmol/L (136-145)
[2021-04-12] MEDS: ENOXAPARIN 40 MG/0.4 ML SQ SCH (07:57)
[2021-04-12] MEDS: ASPIRIN EC 81 MG TAB PO SCH (07:57)
[2021-04-12] MEDS: ZINC SULFATE 220 MG CAP PO SCH (07:58)
[2021-04-12] MEDS: THIAMINE HCL 100 MG TABLET PO SCH (07:58)
[2021-04-12] MEDS: METHYLPREDNISOLONE 125 MG INJ IV SCH ×3 (07:58→20:51)
[2021-04-12] MEDS: ASCORBIC ACID 500 MG TABLET PO SCH ×4 (07:58→20:51)
[2021-04-12] MEDS: VITAMIN D 1000 UNIT TAB PO SCH (07:58)
[2021-04-12] MEDS: IVERMECTIN 3 MG TABLET PO SCH (07:59)
[2021-04-12] MEDS: REMDESIVIR (EUA) 100 MG in NA CHLORIDE 0.9% 250 ML IV SCH (08:23)
--- NOTE | 2021-04-12 12:29 | P.PN ---
Subjective Date of Service: 04/12/21 Patient is clinically still tachypneic and short of breath. Still requiring high-flow oxygen. Review of Systems 10-point ROS is otherwise unremarkable Physical Examination - Vital Signs Temperature: 98.7 F Blood Pressure: 120/72 Pulse: 93 Respirations: 18 Pulse Ox (%): 89 - Physical Exam General: Alert, In no apparent distress Respiratory: Diminished, Rhonchi/gurgles Cardiovascular: Regular rate/rhythm, Normal S1 S2, Systolic murmur Gastrointestinal: Normal bowel sounds, Soft and benign, Non-distended, No tenderness Musculoskeletal: No tenderness Integumentary: No rashes Neurological: Sensation intact, Cranial nerves 3-12 intact - Studies Medications List Reviewed: Yes Assessment & Plan - Problems (Diagnosis) (1) Acute respiratory failure due to severe acute respiratory syndrome coronavirus 2 (SARS-CoV-2) infection Current Visit: Yes Status: Acute - Plan 1. Continue with IV steroids 2. Monitor inflammatory markers 3. Repeat chest x-ray if symptoms are progressively worsening 4. O2 per protocol 5. Pulmonary consultation 6. Continue with albuterol inhaler therapy; also supportive care 7. Monitor LFTs 8. Patient is hypoxic and would benefit from remdesivir 9. GI and DVT prophylaxis Discharge Plan: Home Plan to discharge in: Greater than 2 days - Advance Directives Does patient have a Living Will: No Does patient have a Durable POA for Healthcare: No
--- NOTE | 2021-04-12 16:51 | P.PN ---
Subjective Date of Service: 04/12/21 Primary Care Provider: none Chief Complaint: Respiratory failure Patient's condition is deteriorated requiring more oxygen more coughing spells the change to high-flow today Review of Systems General: Weakness Respiratory: Shortness of Breath Physical Examination - Vital Signs Temperature: 98.7 F Blood Pressure: 120/72 Pulse: 93 Respirations: 18 Pulse Ox (%): 89 - Studies Medications List Reviewed: Yes Assessment & Plan - Problems (Diagnosis) (1) Acute respiratory failure due to severe acute respiratory syndrome coronavirus 2 (SARS-CoV-2) infection Current Visit: Yes Status: Acute Plan: Respiratory failure requiring high concentration of oxygen now I am going to give him a dose of Actemra continue with ivermectin and high doses of steroids chemistries reviewed change to high-flow oxygen and may need a BiPAP chest x-ray so far looks clear full anticoagulation
[2021-04-12] MEDS ORDERED: TOCILIZUMAB 800 MG in NA CHLORIDE 0.9% 60 ML IV ONE (17:15)
[2021-04-12] MEDS: APIXABAN 5 MG TABLET PO SCH (20:51)
[2021-04-12] MEDS: MELATONIN 5 MG TABLET PO PRN (20:51)
[2021-04-12] MEDS: BENZONATATE 100 MG CAP PO PRN (20:51)
[2021-04-13 04:38] LABS: Absolute Lymphocytes (CBC) 0.6 K/uL (0.7-4.9); Hematocrit 40.4 % (39.6-49.0); Lymphocytes % 9.6 % (15.3-44.8); MPV 8.8 fL (7.6-11.3); RBC Red Blood Cell Count 4.85 M/uL (4.33-5.43)
[2021-04-13 05:42] LABS: ALT/SGPT 64 U/L (12-78); AST/SGOT 87 U/L (15-37); Albumin 2.9 g/dL (3.4-5.0); Alkaline Phosphatase 50 U/L (45-117); BUN Blood Urea Nitrogen 18 mg/dL (7-18); Bicarbonate 29 mmol/L (21-32); Bilirubin Direct 0.3 mg/dL (0-0.2); Bilirubin Total 0.9 mg/dL (0.2-1.0); C-Reactive Protein 8.95 mg/L (<3.00); Ferritin 557.8 ng/mL (26-388); Glucose Level 157 mg/dL (74-106); Magnesium 2.6 mg/dL (1.8-2.4); Potassium 3.8 mmol/L (3.5-5.1); Protein, Total 6.4 g/dL (6.4-8.2); Sodium Level 141 mmol/L (136-145)
[2021-04-13] MEDS: METHYLPREDNISOLONE 125 MG INJ IV SCH ×3 (08:08→20:45)
[2021-04-13] MEDS: APIXABAN 5 MG TABLET PO SCH ×2 (08:08→20:45)
[2021-04-13] MEDS: ASPIRIN EC 81 MG TAB PO SCH (08:08)
[2021-04-13] MEDS: VITAMIN D 1000 UNIT TAB PO SCH (08:08)
[2021-04-13] MEDS: ASCORBIC ACID 500 MG TABLET PO SCH ×4 (08:08→20:45)
[2021-04-13] MEDS: ZINC SULFATE 220 MG CAP PO SCH (08:08)
[2021-04-13] MEDS: THIAMINE HCL 100 MG TABLET PO SCH (08:08)
[2021-04-13] MEDS: REMDESIVIR (EUA) 100 MG in NA CHLORIDE 0.9% 250 ML IV SCH (08:45)
[2021-04-13] MEDS ORDERED: POTASSIUM CL SA 10 MEQ TAB PO ONE (08:58)
--- NOTE | 2021-04-13 12:24 | P.PN ---
Subjective Date of Service: 04/13/21 Primary Care Provider: none Chief Complaint: Respiratory failure Patient is not doing well still requiring high concentrations of oxygen Actemra is pending Review of Systems General: Weakness Respiratory: Cough, Shortness of Breath Physical Examination - Vital Signs Temperature: 98.1 F Blood Pressure: 154/90 Pulse: 74 Respirations: 24 Pulse Ox (%): 91 - Studies Medications List Reviewed: Yes Assessment & Plan - Problems (Diagnosis) (1) Acute respiratory failure due to severe acute respiratory syndrome coronavirus 2 (SARS-CoV-2) infection Current Visit: Yes Status: Acute Plan: Respiratory failure continue with present therapy continue with high-dose steroids Actemra and Remdesmir at low-dose spironolactone blood pressure is little elevated labs reviewed
[2021-04-13] MEDS: BENZONATATE 100 MG CAP PO PRN ×2 (15:33→23:33)
[2021-04-13] MEDS: MELATONIN 5 MG TABLET PO PRN (20:45)
[2021-04-14 05:25] LABS: Absolute Lymphocytes (CBC) 0.7 K/uL (0.7-4.9); Basophils % 0.2 % (0-1.3); Hematocrit 39.4 % (39.6-49.0); Lymphocytes % 7.8 % (15.3-44.8); MPV 9.4 fL (7.6-11.3); RBC Red Blood Cell Count 4.78 M/uL (4.33-5.43)
[2021-04-14 05:57] LABS: ALT/SGPT 102 U/L (12-78); AST/SGOT 83 U/L (15-37); Albumin 3.1 g/dL (3.4-5.0); Alkaline Phosphatase 50 U/L (45-117); BUN Blood Urea Nitrogen 17 mg/dL (7-18); Bicarbonate 29 mmol/L (21-32); Bilirubin Direct 0.2 mg/dL (0-0.2); C-Reactive Protein 5.34 mg/L (<3.00); Ferritin 555.7 ng/mL (26-388); Glucose Level 163 mg/dL (74-106); Magnesium 2.5 mg/dL (1.8-2.4); Potassium 3.8 mmol/L (3.5-5.1); Protein, Total 6.1 g/dL (6.4-8.2); Sodium Level 141 mmol/L (136-145)
--- NOTE | 2021-04-14 07:11 | RAD REPORT ---
EXAM DESCRIPTION: [facility] Single View04/14/2021 6:00 am CLINICAL HISTORY: Chest pain COMPARISON: April 11, 2021 FINDINGS: Worsening in [id number] bilateral pulmonary opacities. The heart is mildly enlarg ed IMPRESSION: Worsening in [id number] bilateral pneumonia
[2021-04-14] MEDS: VITAMIN D 1000 UNIT TAB PO SCH (08:14)
[2021-04-14] MEDS: BENZONATATE 100 MG CAP PO PRN ×2 (08:15→16:23)
[2021-04-14] MEDS: ASPIRIN EC 81 MG TAB PO SCH (08:15)
[2021-04-14] MEDS: ZINC SULFATE 220 MG CAP PO SCH (08:15)
[2021-04-14] MEDS: ASCORBIC ACID 500 MG TABLET PO SCH ×4 (08:15→20:12)
[2021-04-14] MEDS: SPIRONOLACTONE 25 MG TABLET PO SCH (08:15)
[2021-04-14] MEDS: METHYLPREDNISOLONE 125 MG INJ IV SCH ×3 (08:16→20:12)
[2021-04-14] MEDS: THIAMINE HCL 100 MG TABLET PO SCH (08:16)
[2021-04-14] MEDS: ACETAMINOPHEN 500 MG TAB PO PRN (08:16)
[2021-04-14] MEDS: APIXABAN 5 MG TABLET PO SCH ×2 (08:16→20:12)
[2021-04-14] MEDS ORDERED: POTASSIUM CL SA 10 MEQ TAB PO ONE (09:00)
--- NOTE | 2021-04-14 09:03 | P.PN ---
Date of Service: 04/13/21 Subjective Patient is doing a little bit better. However, oxygen requirements have increased. Patient remains a little tachypneic. On date 3 of remdesivir Review of Systems 10-point ROS is otherwise unremarkable Physical Examination - Vital Signs Reviewed - Physical Exam General: Alert, In no apparent distress Respiratory: Diminished, Rhonchi/gurgles Cardiovascular: Regular rate/rhythm, Normal S1 S2, Systolic murmur Gastrointestinal: Normal bowel sounds, Soft and benign, Non-distended, No tenderness Neurological: Sensation intact, Cranial nerves 3-12 intact Assessment & Plan - Problems (Diagnosis) (1) Acute respiratory failure due to severe acute respiratory syndrome coronavirus 2 (SARS-CoV-2) infection Current Visit: Yes Status: Acute - Plan 1. Continue with IV steroids 2. Monitor inflammatory markers 3. Repeat chest x-ray if symptoms are progressively worsening 4. O2 per protocol 5. Pulmonary consultation appreciated 6. Continue with albuterol inhaler therapy; also supportive care 7. Monitor LFTs 8. Day 3 of remdesivir 9. GI and DVT prophylaxis
--- NOTE | 2021-04-14 09:07 | P.PN ---
Date of Service: 04/14/21 Subjective Patient with no significant changes. Chest x-ray shows worsening of bilateral infiltrates. Review of Systems 10-point ROS is otherwise unremarkable Physical Examination - Vital Signs Reviewed - Physical Exam General: Alert, In no apparent distress Respiratory: Diminished, Rhonchi/gurgles Cardiovascular: Regular rate/rhythm, Normal S1 S2, Systolic murmur Gastrointestinal: Normal bowel sounds, Soft and benign, Non-distended, No tenderness Neurological: Sensation intact, Cranial nerves 3-12 intact Assessment & Plan - Problems (Diagnosis) (1) Acute respiratory failure due to severe acute respiratory syndrome co ronavirus 2 (SARS-CoV-2) infection Current Visit: Yes Status: Acute - Plan Continue with plan of care as mentioned below: 1. Continue with IV steroids 2. Inflammatory marker stable 3. Repeat chest x-ray revealed 4. O2 per protocol 5. Pulmonary consultation appreciated 6. Continue with albuterol inhaler therapy; also supportive care 7. Monitor LFTs 8. Day 4 of remdesivir 9. GI and DVT prophylaxis
[2021-04-14] MEDS: REMDESIVIR (EUA) 100 MG in NA CHLORIDE 0.9% 250 ML IV SCH (09:24)
[2021-04-14] MEDS: MELATONIN 5 MG TABLET PO PRN (20:12)
[2021-04-15] MEDS: BENZONATATE 100 MG CAP PO PRN ×4 (00:19→23:54)
[2021-04-15 05:55] LABS: ALT/SGPT 127 U/L (12-78); AST/SGOT 60 U/L (15-37); Albumin 3.2 g/dL (3.4-5.0); Alkaline Phosphatase 54 U/L (45-117); BUN Blood Urea Nitrogen 18 mg/dL (7-18); Bicarbonate 29 mmol/L (21-32); Bilirubin Direct 0.3 mg/dL (0-0.2); Bilirubin Total 1.2 mg/dL (0.2-1.0); Ferritin 527.6 ng/mL (26-388); Glucose Level 156 mg/dL (74-106); Magnesium 2.6 mg/dL (1.8-2.4); Protein, Total 6.2 g/dL (6.4-8.2); Sodium Level 139 mmol/L (136-145)
[2021-04-15 05:58] LABS: C-Reactive Protein < 2.90 mg/L (<3.00)
--- NOTE | 2021-04-15 08:36 | P.PN ---
Subjective Date of Service: 04/15/21 Primary Care Provider: none Chief Complaint: Respiratory failure Patient is improving oxygen requirements declining still having coughing spells Review of Systems General: Weakness Respiratory: Cough, Shortness of Breath Physical Examination - Vital Signs Temperature: 98.2 F Blood Pressure: 128/81 Pulse: 63 Respirations: 25 Pulse Ox (%): 92 - Studies Medications List Reviewed: Yes Assessment & Plan - Problems (Diagnosis) (1) Acute respiratory failure due to severe acute respiratory syndrome coronavirus 2 (SARS-CoV-2) infection Status: Acute Plan: Respiratory failure is improving continue to wean and titrate his O2 reduce dose of Solu-Medrol setup for home O2
[2021-04-15] MEDS: THIAMINE HCL 100 MG TABLET PO SCH (09:11)
[2021-04-15] MEDS: REMDESIVIR (EUA) 100 MG in NA CHLORIDE 0.9% 250 ML IV SCH (09:11)
[2021-04-15] MEDS: ASPIRIN EC 81 MG TAB PO SCH (09:12)
[2021-04-15] MEDS: VITAMIN D 1000 UNIT TAB PO SCH (09:12)
[2021-04-15] MEDS: APIXABAN 5 MG TABLET PO SCH ×2 (09:13→20:10)
[2021-04-15] MEDS: ASCORBIC ACID 500 MG TABLET PO SCH ×4 (09:13→20:10)
[2021-04-15] MEDS: ZINC SULFATE 220 MG CAP PO SCH (09:13)
[2021-04-15] MEDS: METHYLPREDNISOLONE 125 MG INJ IV SCH ×2 (09:14→20:11)
[2021-04-15] MEDS: SPIRONOLACTONE 25 MG TABLET PO SCH (09:14)
[2021-04-15] MEDS: MELATONIN 5 MG TABLET PO PRN (20:10)
--- NOTE | 2021-04-16 00:29 | P.PN ---
Date of Service: 04/15/21 Subjective Patient finishing room to severe. Clinical symptoms have been stable. Gradually wean down FiO2. Chest x-ray yesterday looked much worse. Continue monitoring inflammatory markers and liver function testing. Review of Systems 10-point ROS is otherwise unremarkable Physical Examination - Vital Signs Reviewed - Physical Exam General: Alert, In no apparent distress Respiratory: Diminished, Rhonchi/gurgles Cardiovascular: Regular rate/rhythm, Normal S1 S2, Systolic murmur Gastrointestinal: Normal bowel sounds, Soft and benign, Non-distended, No tenderness Neurological: Sensation intact, Cranial nerves 3-12 intact Assessment & Plan - Problems (Diagnosis) (1) Acute respiratory failure due to severe acute respiratory syndrome coronavirus 2 (SARS-CoV-2) infection Current Visit: Yes Status: Acute - Plan Continue with plan of care as mentioned below: 1. Continue with IV steroids 2. Inflammatory marker stable 3. Repeat chest x-ray in a.m.; chest x-ray on March showed worsening of the infiltrate 4. O2 per protocol; on high-flow at 60% 5. Pulmonary consultation appreciated 6. Continue with albuterol inhaler therapy; also supportive care 7. Monitor LFTs 8. Day 5 of remdesivir 9. GI and DVT prophylaxis
[2021-04-16 06:08] LABS: Absolute Lymphocytes (CBC) 0.8 K/uL (0.7-4.9); Hematocrit 42.8 % (39.6-49.0); Lymphocytes % 5.8 % (15.3-44.8); MPV 8.9 fL (7.6-11.3); RBC Red Blood Cell Count 5.16 M/uL (4.33-5.43)
[2021-04-16 06:46] LABS: ALT/SGPT 125 U/L (12-78); AST/SGOT 41 U/L (15-37); Albumin 3.3 g/dL (3.4-5.0); Alkaline Phosphatase 58 U/L (45-117); BUN Blood Urea Nitrogen 16 mg/dL (7-18); Bicarbonate 29 mmol/L (21-32); Bilirubin Direct 0.3 mg/dL (0-0.2); Bilirubin Total 1.2 mg/dL (0.2-1.0); Ferritin 475.7 ng/mL (26-388); Glucose Level 153 mg/dL (74-106); Magnesium 2.6 mg/dL (1.8-2.4); NT PRO-BNP 44 pg/mL (<125); Potassium 4.1 mmol/L (3.5-5.1); Protein, Total 6.2 g/dL (6.4-8.2); Sodium Level 140 mmol/L (136-145)
[2021-04-16 06:53] LABS: C-Reactive Protein < 2.90 mg/L (<3.00)
[2021-04-16 08:01] LABS: Blood Morphology Comment NOT SEEN (NOT SEEN); Platelet Estimate ADEQ
[2021-04-16] MEDS: ZINC SULFATE 220 MG CAP PO SCH (08:35)
[2021-04-16] MEDS: ASPIRIN EC 81 MG TAB PO SCH (08:35)
[2021-04-16] MEDS: BENZONATATE 100 MG CAP PO PRN ×2 (08:35→20:19)
[2021-04-16] MEDS: METHYLPREDNISOLONE 125 MG INJ IV SCH ×2 (08:35→20:17)
[2021-04-16] MEDS: APIXABAN 5 MG TABLET PO SCH ×2 (08:35→20:19)
[2021-04-16] MEDS: VITAMIN D 1000 UNIT TAB PO SCH (08:35)
[2021-04-16] MEDS: SPIRONOLACTONE 25 MG TABLET PO SCH (08:35)
[2021-04-16] MEDS: ASCORBIC ACID 500 MG TABLET PO SCH ×4 (08:35→20:19)
[2021-04-16] MEDS: THIAMINE HCL 100 MG TABLET PO SCH (08:35)
--- NOTE | 2021-04-16 08:58 | RAD REPORT ---
EXAM DESCRIPTION: RAD - Chest Single View - 04/16/2021 5:39 am CLINICAL HISTORY: Goode virus pneumonia Chest pain. COMPARISON: Chest Single View dated 04/14/2021; Chest Single View dated 04/11/2021; Chest Single View dated 04/09/2021; Chest Single View dated 04/08/2021 FINDINGS: Portable technique limits examination quality. Bilateral pulmonary opacities have shown mild improvement since the comparative studies. The heart is normal in size. No displaced fractures. IMPRESSION: Mild improvement in bilateral pulmonary opacities since comparative study.
--- NOTE | 2021-04-16 11:49 | P.PN ---
Subjective Date of Service: 04/16/21 Primary Care Provider: none Chief Complaint: Respiratory failure Patient is doing well oxygen requirements declining no new complaints Review of Systems General: Weakness Respiratory: Shortness of Breath Physical Examination - Vital Signs Temperature: 98.4 F Blood Pressure: 113/77 Pulse: 69 Respirations: 20 Pulse Ox (%): 96 - Studies Medications List Reviewed: Yes Assessment & Plan - Problems (Diagnosis) (1) Acute respiratory failure due to severe acute respiratory syndrome coronavirus 2 (SARS-CoV-2) infection Current Visit: Yes Status: Acute Plan: Patient improving change continue with present dose of steroids discharge in 2 days on prednisone 20 b.i.d. for a week then 10 b.i.d. follow-up telephone visit in 1 or 2 weeks not be able to wean down his oxygen requirements fairly rapidly he is very comfortable the less some coughing spell continue with the anticoagulation for for at least 3 weeks as outpatient if possible continue with aspirin vital signs stable repeat 2nd dose of ivermectin
[2021-04-16] MEDS: IVERMECTIN 3 MG TABLET PO SCH (12:04)
[2021-04-16] MEDS: MELATONIN 5 MG TABLET PO PRN (20:19)
[2021-04-17 05:52] LABS: Absolute Lymphocytes (CBC) 0.8 K/uL (0.7-4.9); Basophils % 0.4 % (0-1.3); Hematocrit 45.9 % (39.6-49.0); Lymphocytes % 5.2 % (15.3-44.8); RBC Red Blood Cell Count 5.46 M/uL (4.33-5.43)
[2021-04-17] MEDS: VITAMIN D 1000 UNIT TAB PO SCH (08:20)
[2021-04-17] MEDS: METHYLPREDNISOLONE 125 MG INJ IV SCH ×2 (08:20→20:11)
[2021-04-17] MEDS: ZINC SULFATE 220 MG CAP PO SCH (08:20)
[2021-04-17] MEDS: ASPIRIN EC 81 MG TAB PO SCH (08:20)
[2021-04-17] MEDS: SPIRONOLACTONE 25 MG TABLET PO SCH (08:21)
[2021-04-17] MEDS: ASCORBIC ACID 500 MG TABLET PO SCH ×4 (08:21→20:11)
[2021-04-17] MEDS: APIXABAN 5 MG TABLET PO SCH ×2 (08:21→20:11)
[2021-04-17] MEDS: THIAMINE HCL 100 MG TABLET PO SCH (08:21)
[2021-04-17 09:10] LABS: ALT/SGPT 131 U/L (12-78); AST/SGOT 33 U/L (15-37); Albumin 3.5 g/dL (3.4-5.0); Alkaline Phosphatase 61 U/L (45-117); BUN Blood Urea Nitrogen 16 mg/dL (7-18); Bicarbonate 31 mmol/L (21-32); Bilirubin Direct 0.3 mg/dL (0-0.2); Bilirubin Total 1.4 mg/dL (0.2-1.0); Ferritin 475.8 ng/mL (26-388); Glucose Level 158 mg/dL (74-106); Magnesium 2.7 mg/dL (1.8-2.4); Potassium 4.6 mmol/L (3.5-5.1); Protein, Total 6.9 g/dL (6.4-8.2); Sodium Level 141 mmol/L (136-145)
[2021-04-17 10:07] LABS: C-Reactive Protein < 2.90 mg/L (<3.00)
--- NOTE | 2021-04-17 12:03 | P.PN ---
Date of Service: 04/16/21 Subjective Completed antiviral therapy. Currently on 4 L oxygen. Rapidly weaning down. Anticipate discharge over the next 24-48 hr. Arrange for home oxygen prior to discharge. Need to increase ambulation Review of Systems 10-point ROS is otherwise unremarkable Physical Examination - Vital Signs Reviewed - Physical Exam General: Alert, In no apparent distress Respiratory: Diminished at the bases but otherwise clear Cardiovascular: Regular rate/rhythm, Normal S1 S2, Systolic murmur Gastrointestinal: Normal bowel sounds, Soft and benign, Non-distended, No tenderness Neurological: Sensation intact, Cranial nerves 3-12 intact Assessment & Plan - Problems (Diagnosis) (1) Acute respiratory failure due to severe acute respiratory syndrome coronavirus 2 (SARS-CoV-2) infection Current Visit: Yes Status: Acute - Plan Continue with plan of care as mentioned below: 1. Continue with IV steroids; completed antiviral therapy 2. Inflammatory marker stable 3. Repeat chest x-ray in a.m.; chest x-ray on March showed worsening of the infiltrate 4. Currently wean down to 4 L oxygen 5. Pulmonary consultation appreciated 6. Continue with albuterol inhaler therapy; also supportive care 7. GI and DVT prophylaxis
[2021-04-17] MEDS: BENZONATATE 100 MG CAP PO PRN (20:11)
[2021-04-17] MEDS: MELATONIN 5 MG TABLET PO PRN (20:11)
[2021-04-18 05:06] LABS: Absolute Lymphocytes (CBC) 0.8 K/uL (0.7-4.9); Basophils % 0.5 % (0-1.3); Hematocrit 45.2 % (39.6-49.0); Lymphocytes % 5.5 % (15.3-44.8); MPV 8.6 fL (7.6-11.3); RBC Red Blood Cell Count 5.41 M/uL (4.33-5.43)
[2021-04-18 05:29] LABS: ALT/SGPT 120 U/L (12-78); Albumin 3.4 g/dL (3.4-5.0); Alkaline Phosphatase 63 U/L (45-117); BUN Blood Urea Nitrogen 18 mg/dL (7-18); Bicarbonate 27 mmol/L (21-32); Bilirubin Direct 0.3 mg/dL (0-0.2); Bilirubin Total 1.5 mg/dL (0.2-1.0); Ferritin 438.4 ng/mL (26-388); Glucose Level 170 mg/dL (74-106); Protein, Total 6.4 g/dL (6.4-8.2); Sodium Level 137 mmol/L (136-145)
[2021-04-18 05:30] LABS: AST/SGOT 31 U/L (15-37); C-Reactive Protein < 2.90 mg/L (<3.00); Magnesium 2.6 mg/dL (1.8-2.4); Potassium 4.8 mmol/L (3.5-5.1)
[2021-04-18] MEDS: METHYLPREDNISOLONE 125 MG INJ IV SCH (08:28)
[2021-04-18] MEDS: SPIRONOLACTONE 25 MG TABLET PO SCH (08:29)
[2021-04-18] MEDS: VITAMIN D 1000 UNIT TAB PO SCH (08:29)
[2021-04-18] MEDS: ASCORBIC ACID 500 MG TABLET PO SCH ×2 (08:29→12:06)
[2021-04-18] MEDS: THIAMINE HCL 100 MG TABLET PO SCH (08:29)
[2021-04-18] MEDS: ASPIRIN EC 81 MG TAB PO SCH (08:29)
[2021-04-18] MEDS: ZINC SULFATE 220 MG CAP PO SCH (08:29)
[2021-04-18] MEDS: APIXABAN 5 MG TABLET PO SCH (08:30)
[2021-04-18] MEDS: IVERMECTIN 3 MG TABLET PO SCH (12:06)
[2021-04-18 12:16] VITALS: O2SAT 93
[2021-04-19 08:25] VITALS: BP 128/81; TEMP 98.2
== END 2021-04-18 12:24 | disposition home or self-care (01) | DRG 177 ==
LOC: ER 20:15 → ERHOLD 04-10 00:29 → 3RD-ICU 04-10 01:45
PROVIDERS: ADMIT Family Medicine; ATTEND Hospitalist
PROC: XW033E5 Introduction of Remdesivir Anti-infective into Peripheral Vein, Percutaneous Approach, New Technology Group 5 (ICD-10-PCS; principal; 2021-04-11)
PROC: 5A09557 Assistance with Respiratory Ventilation, Greater than 96 Consecutive Hours, Continuous Positive Airway Pressure (ICD-10-PCS; 2021-04-11)
DX: U07.1 COVID-19 (principal); J12.82 Pneumonia due to coronavirus disease 2019; J96.01 Acute respiratory failure with hypoxia; Z68.43 Body mass index [BMI] 50.0-59.9, adult; E66.9 Obesity, unspecified; G47.33 Obstructive sleep apnea (adult) (pediatric); R73.9 Hyperglycemia, unspecified
CPT/HCPCS: 36415; 71045; 71275; 80048; 80053; 80076; 81003; 81015; 82248; 82728; 83036; 83735; 83880; 84145; 84484; 85025; 85379; 85610; 86140; 87040; 87086; 87088; 93005; 94002; 94003; 96361; 96372; 96374; 99285; J1100; J1650; J2405; J2920; J2930; J3262; J7030; J7040; J7050; Q9967

== ENCOUNTER 2021-05-05 14:28 | Emergency (ER) | payer SELFPAY ==
[2021-05-05 16:06] LABS: Absolute Lymphocytes (CBC) 0.9 K/uL (0.7-4.9); Basophils % 0.9 % (0-1.3); Hematocrit 44.8 % (39.6-49.0); MPV 8.2 fL (7.6-11.3); RBC Red Blood Cell Count 5.24 M/uL (4.33-5.43)
--- NOTE | 2021-05-05 16:13 | RAD REPORT ---
EXAM DESCRIPTION: [facility] Single View05/05/2021 3:34 pm CLINICAL HISTORY: Chest pain COMPARISON: March 2021 FINDINGS: Mild bilateral pulmonary opacities Heart is normal size IMPRESSION: Mild bilateral pulmonary opacities probably pneumonia
[2021-05-05 16:15] LABS: Protime INR 1.08
[2021-05-05 16:38] LABS: ALT/SGPT 130 U/L (12-78); AST/SGOT 30 U/L (15-37); Albumin 3.8 g/dL (3.4-5.0); Alkaline Phosphatase 87 U/L (45-117); BUN Blood Urea Nitrogen 15 mg/dL (7-18); Bicarbonate 27 mmol/L (21-32); Bilirubin Direct 0.3 mg/dL (0-0.2); Bilirubin Total 2.1 mg/dL (0.2-1.0); Ferritin 316.1 ng/mL (26-388); Glucose Level 169 mg/dL (74-106); Lipase 84 U/L (73-393); Potassium 3.9 mmol/L (3.5-5.1); Protein, Total 7.2 g/dL (6.4-8.2); Sodium Level 137 mmol/L (136-145); Troponin (Emerg Dept Use Only) < 0.02 ng/mL (0.0-0.045)
--- NOTE | 2021-05-05 17:43 | RAD REPORT ---
EXAM DESCRIPTION: CT - Chest For Pe Angio - 05/05/2021 5:22 pm CLINICAL HISTORY: Shortness breath COMPARISON: March 2021 TECHNIQUE: Dynamically enhanced axial 3 mm thick images of the chest were obtained during administra tion of <100> mL Isovue 370 IV contrast. Coronal and oblique reconstruction images were generated and reviewed. Exam utilizes a protocol for optimal evaluation of pulmonary arterial tree. Maximum intensity projections 3D imaging was utilized All CT scans are performed using dose optimization technique as appropriate and may include automated exposure control or mA/KV adjustment according to patient size. FINDINGS: The opacification of pulmonary arteries is suboptimal. No gross central pulmonary embolus is seen. A thoracic aortic aneurysm is not noted. A pleural effusion is not seen. A pericardial effusion is not seen. Mild to moderate bilateral ground-glass opacities within the lungs. Fatty liver IMPRESSION: No gross central pulmonary embolus is visualized Mild to moderate bilateral ground-glass opacities within the lungs may indicate Covid pneumonia. Ther e has been some improvement since the prior exam
--- NOTE | 2021-05-05 18:55 | RAD REPORT ---
EXAM DESCRIPTION: CT - Head Brain Wo Cont - 05/05/2021 6:35 pm CLINICAL HISTORY: Headache COMPARISON: None. TECHNIQUE: Computed axial tomography of the head was obtained. IV contrast was administered approxim ately [address] chest[address] CT scans are performed using dose optimization technique as appropriate and may include automated exposure control or mA/KV adjustment according to patient size. FINDINGS: An intracranial bleed is not seen . Evaluation for very small subarachnoid bleed could be difficult to detect given the IV contrast administration. The ventricles are normal in caliber. No extra-axial fluid collection is noted. Fluid within the sinuses/ mastoids is not seen. IMPRESSION: No acute intracranial abnormality is seen. If patient's symptoms persist MRI of the bra in would be recommended.
--- NOTE | 2021-05-05 19:12 | ER ---
Nurse's Notes [facility] Name: Adal Dunne III Age: 30 yrs Sex: Male : 1990 Arrival Date: 05/05/2021 Time: 14:29 Bed 13 Private MD: Diagnosis: Coronavirus infection, unspecified;Dyspnea Presentation: 05/05 14:40 Chief complaint: Patient states: SOB, VILLATORO, nausea for 5 days. SOB with exertion. Had ll1 covid pneumonia last month, been on oxygen since. Out of his portable oxygen since last night. Coronavirus screen: Client denies travel out of the [place] in the last 14 days. congestion, cough unrelated to allergies, difficulty breathing, headache, nausea, shortness of breath, Client presents with at least one sign or symptom that may indicate coronavirus-19. Standard/surgical mask placed on the client. Ebola Screen: Patient denies travel to an Ebola-affected area in the 21 days before illness onset. Initial Sepsis Screen: Does the patient meet any 2 criteria? RR > 20 per min. Does the patient have a suspected source of infection? Yes: Productive cough/pneumonia. Risk Assessment: Do you want to hurt yourself or someone else? Patient reports no desire to harm self or others. Onset of symptoms was May 01, 2021. 14:40 Method Of Arrival: Ambulatory ll1 14:40 Acuity: LATIA 3 ll1 Historical: - Allergies: 14:43 No Known Allergies; ll1 - PMHx: 14:43 Migraines; broken great toe right; covid; ll1 - PSHx: 14:43 None; ll1 - Immunization history:: Flu vaccine is not up to date. - Social history:: Smoking status: Patient denies any tobacco usage or history of. Screenin:46 Abuse screen: Denies threats or abuse. Nutritional screening: No deficits noted. tw2 Tuberculosis screening: No symptoms or risk factors identified. Fall Risk None identified. Assessment: 15:50 Reassessment: No changes from previously documented assessment. Patient and/or family tw2 updated on plan of care and expected duration. Pain level reassessed. General: Appears uncomfortable, obese, Behavior is calm, cooperative, appropriate for age. Pain: Complains of pain in "headache". Neuro: Level of Consciousness is awake, alert, obeys commands, Oriented to person, place, time, situation, Reports headache. Cardiovascular: Rhythm is sinus rhythm. Respiratory: Reports shortness of breath at rest on exertion cough that is non-productive, dry, persistent Airway is patent Respiratory effort is even, unlabored, Respiratory pattern is regular, symmetrical, Breath sounds are diminished bilaterally. GI: No signs and/or symptoms were reported involving the gastrointestinal system. Abdomen is round non-distended, obese. : No signs and/or symptoms were reported regarding the genitourinary system. Musculoskeletal: Range of motion: intact in all extremities. 17:00 Reassessment: No changes from previously documented assessment. Patient and/or family tw2 updated on plan of care and expected duration. Pain level reassessed. 18:11 Reassessment: No changes from previously documented assessment. Patient and/or family tw2 updated on plan of care and expected duration. Pain level reassessed. 19:06 Reassessment: No changes from previously documented assessment. Patient and/or family tw2 updated on plan of care and expected duration. Pain level reassessed. Vital Signs: 14:40 BP 150 / 106; Pulse 110; Resp 24; Temp 97.8; Pulse Ox 95% on R/A; Weight 136.08 kg; ll1 Height 5 ft. 11 in. (180.34 cm); Pain 9/10; 16:02 BP 124 / 86; Pulse 92; Resp 27; Pulse Ox 95% on 3 lpm NC; tw2 17:00 BP 110 / 78; Pulse 75; Resp 17; Pulse Ox 97% on R/A; tw2 18:00 BP 124 / 77; Pulse 90; Resp 17; Pulse Ox 97% on 3 lpm NC; tw2 19:06 BP 127 / 84; Pulse 102; Resp 20; Pulse Ox 97% on 3 lpm NC; tw2 14:40 Body Mass Index 41.84 (136.08 kg, 180.34 cm) ll1 ED Course: 14:29 Patient arrived in ED. ds1 14:43 Triage completed. ll1 14:43 Arm band placed on. ll1 14:44 Bed in low position. Call light in reach. Pulse ox on. NIBP on. tw2 14:46 Naa Lezama RN is Primary Nurse. tw2 14:52 Mildred Moya FNP-C is PHCP. kb 14:52 Denys Arriaga MD is Attending Physician. kb 15:33 CXR XRAY In Process Unspecified. EDMS 15:50 Inserted saline lock: 20 gauge in right hand, using aseptic technique. Blood collected. tw2 16:01 Lactate Sent. tw2 16:48 Inserted saline lock: 22 gauge in right antecubital area, using aseptic technique. tw2 17:22 CT Chest For PE Angio In Process Unspecified. EDMS 18:33 CT Head Brain wo Cont In Process Unspecified. EDMS 19:06 Report given to ZACHARIAH Nicholas. tw2 19:11 Primary Nurse role handed off by Naa Lezama RN fu 19:11 Cristopher Lux, ZACHARIAH is Primary Nurse. fu 20:10 No provider procedures requiring assistance completed. IV discontinued, bleeding fu controlled, Pressure dressing applied. Administered Medications: No medications were administered Outcome: 19:11 Discharge ordered by MD. kb 20:05 Condition: good fu 20:05 Discharge instructions given to patient, Instructed on discharge instructions, follow up and referral plans. Demonstrated understanding of instructions, follow-up care, Prescriptions given X 0 20:05 Discharged to home ambulatory. fu 20:10 Patient left the ED. fu Signatures: Dispatcher [employer] EDMS Mildred Moya, CONSULTING PROJECT DIRECTOR-C CONSULTING PROJECT DIRECTOR-Xuan Gotti ds1 Naa Lezama RN RN tw2 Cristopher Lux, Jazmín Gomez RN RN RN ll1
--- NOTE | 2021-05-05 19:12 | EDPHYS ---
Physician Documentation [facility] Name: Adal Dunne III Age: 30 yrs Sex: Male : 1990 Arrival Date: 05/05/2021 Time: 14:29 Bed 13 Private MD: ED Physician Denys Arriaga HPI: 05/05 16:09 This 30 yrs old Male presents to ER via Ambulatory with complaints of kb Shortness Of Breath, Headache, Nausea. 16:09 The patient has shortness of breath at rest, with light activity. Onset: The kb symptoms/episode began/occurred 1 month(s) ago, and became worse 3 day(s) ago. Duration: The symptoms are continuous. The patient's shortness of breath is aggravated by exertion. Associated signs and symptoms: Pertinent positives: chest pain. Severity of symptoms: At their worst the symptoms were moderate in the emergency department the symptoms are unchanged. The patient has not experienced similar symptoms in the past. The patient has been recently been admitted at [facility], was discharged last month, for similar complaints, but despite evaluation and treatment the patient now has worsening symptoms. Pt reports he was diagnosed with COVID on 04/08/21. Admitted on 04/09/21 for covid pneumonia and discharged with home oxygen. States he has been more short of breath and has had some right chest pain. . Historical: - Allergies: 14:43 No Known Allergies; ll1 - PMHx: 14:43 Migraines; broken great toe right; covid; ll1 - PSHx: 14:43 None; ll1 - Immunization history:: Flu vaccine is not up to date. - Social history:: Smoking status: Patient denies any tobacco usage or history of. ROS: 16:01 Constitutional: Negative for fever, chills, and weight loss. kb 16:07 Cardiovascular: Positive for chest pain, Negative for edema, orthopnea, palpitations, kb paroxysmal nocturnal dyspnea. 16:07 Respiratory: Positive for dyspnea on exertion, shortness of breath, Negative for cough, hemoptysis, orthopnea, pleurisy, sputum production, wheezing. 16:07 Abdomen/GI: Positive for nausea. 16:07 Neuro: Positive for headache. 16:07 All other systems are negative. Exam: 16:08 Constitutional: This is a well developed, well nourished patient who is awake, alert, kb and in no acute distress. Head/Face: Normocephalic, atraumatic. ENT: Moist Mucous membranes Cardiovascular: Regular rate and rhythm with a normal S1 and S2. No gallops, murmurs, or rubs. No pulse deficits. Abdomen/GI: Soft, non-tender. No distention Skin: Warm, dry with normal turgor. Normal color. MS/ Extremity: Pulses equal, no cyanosis. Neurovascular intact. Full, normal range of motion. Neuro: Awake and alert, GCS 15, oriented to person, place, time, and situation. Moves all extremities. Normal gait. Psych: Awake, alert, with orientation to person, place and time. Behavior, mood, and affect are within normal limits. 16:08 Respiratory: mild respiratory distress is noted, Respirations: labored breathing, Breath sounds: are clear throughout. Vital Signs: 14:40 BP 150 / 106; Pulse 110; Resp 24; Temp 97.8; Pulse Ox 95% on R/A; Weight 136.08 kg; ll1 Height 5 ft. 11 in. (180.34 cm); Pain 9/10; 16:02 BP 124 / 86; Pulse 92; Resp 27; Pulse Ox 95% on 3 lpm NC; tw2 17:00 BP 110 / 78; Pulse 75; Resp 17; Pulse Ox 97% on R/A; tw2 18:00 BP 124 / 77; Pulse 90; Resp 17; Pulse Ox 97% on 3 lpm NC; tw2 19:06 BP 127 / 84; Pulse 102; Resp 20; Pulse Ox 97% on 3 lpm NC; tw2 14:40 Body Mass Index 41.84 (136.08 kg, 180.34 cm) ll1 MDM: 14:52 Patient medically screened. kb 16:00 Data reviewed: vital signs, nurses notes. Data interpreted: Pulse oximetry: on 2L(s) kb per nasal canula, is 95 %. Interpretation: acceptable. 17:46 Counseling: I had a detailed discussion with the patient and/or guardian regarding: the kb historical points, exam findings, and any diagnostic results supporting the discharge/admit diagnosis, lab results, radiology results, the need for outpatient follow up, a family practitioner, to return to the emergency department if symptoms worsen or persist or if there are any questions or concerns that arise at home. 20:16 ED course: Oxygen 97% on 2L. Pt has home o2 and portable o2 that he has been using kb since his admission for covid last month. . 05/05 15:16 Order name: BMP kb 05/05 15:16 Order name: Blood Culture Adult (2) kb 05/05 15:16 Order name: C-Reactive Protein; Complete Time: 16:38 kb 05/05 15:16 Order name: CBC with Diff; Complete Time: 16:11 kb 05/05 15:16 Order name: D-Dimer; Complete Time: 16:24 kb 05/05 15:16 Order name: Ferritin; Complete Time: 16:38 kb 05/05 15:16 Order name: LFT's; Complete Time: 16:38 kb 05/05 15:16 Order name: Lactate; Complete Time: 16:24 kb 05/05 15:16 Order name: Lipase; Complete Time: 16:38 kb 05/05 15:16 Order name: PT-INR; Complete Time: 16:24 kb 05/05 15:16 Order name: Procalcitonin; Complete Time: 16:46 kb 05/05 15:16 Order name: Ptt, Activated; Complete Time: 16:24 kb 05/05 15:16 Order name: Troponin (emerg Dept Use Only); Complete Time: 16:38 kb 05/05 15:17 Order name: Basic Metabolic Panel; Complete Time: 16:38 EDMS 05/05 15:16 Order name: CXR XRAY; Complete Time: 16:14 kb 05/05 15:16 Order name: EKG; Complete Time: 15:17 kb 05/05 15:16 Order name: Cardiac monitoring; Complete Time: 16:01 kb 05/05 15:16 Order name: Droplet/Contact Precautions; Complete Time: 16:01 kb 05/05 15:16 Order name: EKG - Nurse/Tech; Complete Time: 16:01 kb 05/05 15:16 Order name: IV Start; Complete Time: 16:01 kb 05/05 15:16 Order name: Labs collected and sent; Complete Time: 16:01 kb 05/05 15:16 Order name: O2 Per Protocol; Complete Time: 15:37 kb 05/05 15:16 Order name: O2 Sat Monitoring; Complete Time: 15:37 kb 05/05 16:25 Order name: CT Chest For PE Angio; Complete Time: 17:46 kb 05/05 17:53 Order name: CT Head Brain wo Cont; Complete Time: 19:08 kb Administered Medications: No medications were administered Disposition: 22:09 Co-signature as Attending Physician, Denys Arriaga MD I agree with the assessment and kdr plan of care. Disposition Summary: 05/05/21 19:11 Discharge Ordered Location: Home kb Condition: Stable kb Diagnosis - Coronavirus infection, unspecified kb - Dyspnea kb Followup: kb - With: Emergency Department - When: As needed - Reason: Worsening of condition Followup: kb - With: Private Physician - When: 2 - 3 days - Reason: Recheck today's complaints, Continuance of care, Re-evaluation by your physician Discharge Instructions: - Discharge Summary Sheet kb - COVID-19 kb Forms: - Medication Reconciliation Form kb - Thank You Letter kb - Antibiotic Education kb - Prescription Opioid Use kb Signatures: Dispatcher [employer] EDMS Mildred Moya, MORENO-C OIL REFINERY PROCESS TECHNICIAN-Denys Leos MD MD kdr Jazmín Resendiz RN RN ll1 Corrections: (The following items were deleted from the chart) 16:08 16:01 Constitutional: Negative for fever, chills, and weight loss, kb kb
[2021-05-05 20:47] VITALS: TEMP 97.8
[2021-05-05 20:51] VITALS: O2SAT 97
[2021-05-05 20:54] VITALS: BP 127/84
--- NOTE | 2021-05-06 08:04 | EKG ---
Test Date: 2021-05-05 Test Time: 15:44:59 Yeast Culture Developer: YUNG MEASUREMENT RESULTS: Intervals: Rate: 99 NM: 130 QRSD: 82 QT: 342 QTc: 438 Susan: P: 42 NM: 130 QRS: 13 T: 46 INTERPRETIVE STATEMENTS: Normal sinus rhythm Minimal voltage criteria for LVH, may be normal variant Nonspecific T wave abnormality Abnormal ECG Compared to ECG 04/09/2021 22:51:05 Left ventricular hypertrophy now present T-wave abnormality now present Sinus tachycardia no longer present Myocardial infarct finding no longer present Electronically Signed On 05-06-21 08:03:36 CDT by Lawrence Griggs
== END 2021-05-05 20:10 | disposition home or self-care (01) ==
LOC: ER 14:28
DX: U07.1 COVID-19 (principal)
CPT/HCPCS: 36415; 70450; 71045; 71275; 80048; 80076; 82728; 83605; 83690; 84145; 84484; 85025; 85379; 85610; 85730; 86140; 87040; 93005; 99284; Q9967

== ENCOUNTER 2022-11-21 13:55 | Emergency (ER) | payer SELFPAY ==
[2022-11-21] MEDS ORDERED: dexAMETHasone 10 MG/ML VIAL ONE (14:52)
[2022-11-21] MEDS ORDERED: IBUPROFEN 100 MG/5 ML UCUP ONE (14:52)
[2022-11-21 15:53] LABS: SARS-COV-2 RT PCR NEGATIVE (NEGATIVE)
--- NOTE | 2022-11-21 16:14 | ER ---
Nurse's Notes [facility] Name: Adal Dunne III Age: 32 yrs Sex: Male : 1990 Arrival Date: 11/21/2022 Time: 13:58 Bed DX3 Private MD: Diagnosis: Acute bronchitis, unspecified;Acute pharyngitis, unspecified Presentation: 11/21 14:24 Chief complaint:. Coronavirus screen: Client presents with at least one sign or symptom iw that may indicate coronavirus-19. Ebola Screen: Patient negative for fever greater than or equal to 101.5 degrees Fahrenheit, and additional compatible Ebola Virus Disease symptoms Patient denies exposure to infectious person. Patient denies travel to an Ebola-affected area in the 21 days before illness onset. No symptoms or risks identified at this time. Initial Sepsis Screen: Does the patient meet any 2 criteria? No. Patient's initial sepsis screen is negative. Does the patient have a suspected source of infection? No. Patient's initial sepsis screen is negative. Risk Assessment: Do you want to hurt yourself or someone else? Patient reports no desire to harm self or others. Onset of symptoms. 14:24 Method Of Arrival: Ambulatory iw 14:24 Acuity: LATIA 4 iw Historical: - PMHx: 14:25 broken great toe right; COVID; Migraines; iw Vital Signs: 14:24 BP 131 / 92; Pulse 114; Resp 22; Temp 99.4; Pulse Ox 98% on R/A; iw 16:15 Pulse 85; Resp 22; Temp 99.6; Pulse Ox 98% ; snw ED Course: 13:58 Patient arrived in ED. mr 14:02 Francesca Ureña FNP-C [facility]. snw 14:02 Jorge A Fisher DO is Attending Physician. snw 14:24 Morenita Garcia, ZACHARIAH is Primary Nurse. iw 14:25 Triage completed. iw 14:25 Arm band placed on. iw Administered Medications: 14:52 Drug: Decadron - Dexamethasone 10 mg {Note: given PO.} Route: IVP; Site: Other; iw 14:52 Drug: Motrin (ibuprofen) Suspension 400 mg Route: PO; iw Outcome: 16:14 Discharge ordered by . snw 16:35 Patient left the ED. iw Signatures: Francesca Ureña FNP-C MODEL AND MOLD MAKER PLASTER-Csnw Sr, Ann mr Morenita Garcia, RN RN iw
--- NOTE | 2022-11-21 16:14 | EDPHYS ---
Physician Documentation [facility] Name: Adal Dunne III Age: 32 yrs Sex: Male : 1990 Arrival Date: 11/21/2022 Time: 13:58 Bed DX3 Private MD: ED Physician Jorge A Fisher HPI: 11/21 14:50 This 32 yrs old Male presents to ER via Ambulatory with complaints of Sore Throat, snw Breathing Difficulty. 14:50 The patient presents with sore throat. Onset: The symptoms/episode began/occurred snw suddenly, 4 day(s) ago, and became persistent. Associated signs and symptoms: Pertinent positives: cough. The patient has not experienced similar symptoms in the past, but family has similar symptoms. The patient has not recently seen a physician. Historical: - PMHx: 14:25 broken great toe right; COVID; Migraines; iw ROS: 14:49 Eyes: Negative for injury, pain, redness, and discharge. snw 14:49 Neck: Negative for injury, pain, and swelling, Cardiovascular: Negative for chest pain, palpitations, and edema. 14:49 Abdomen/GI: Negative for abdominal pain, nausea, vomiting, diarrhea, and constipation, Back: Negative for injury and pain, : Negative for injury, bleeding, discharge, and swelling, MS/Extremity: Negative for injury and deformity, Skin: Negative for injury, rash, and discoloration, Neuro: Negative for headache, weakness, numbness, tingling, and seizure, Psych: Negative for depression, anxiety, suicide ideation, homicidal ideation, and hallucinations. 14:49 Constitutional: Positive for body aches, fever, malaise, poor PO intake. 14:49 ENT: Positive for sore throat. 14:49 Respiratory: Positive for cough, orthopnea, shortness of breath. Exam: 14:48 Head/Face: Normocephalic, atraumatic. Eyes: Pupils equal round and reactive to light, snw extra-ocular motions intact. Lids and lashes normal. Conjunctiva and sclera are non-icteric and not injected. Cornea within normal limits. Periorbital areas with no swelling, redness, or edema. 14:48 Neck: Trachea midline, no thyromegaly or masses palpated, and no cervical lymphadenopathy. Supple, full range of motion without nuchal rigidity, or vertebral point tenderness. No Meningismus. Chest/axilla: Normal chest wall appearance and motion. Nontender with no deformity. No lesions are appreciated. Cardiovascular: Tachycardic rate and rhythm with a normal S1 and S2. No gallops, murmurs, or rubs. Normal PMI, no JVD. No pulse deficits. 14:48 Abdomen/GI: Soft, non-tender, with normal bowel sounds. No distension or tympany. No guarding or rebound. No evidence of tenderness throughout. Back: No spinal tenderness. No costovertebral tenderness. Full range of motion. Skin: Warm, dry with normal turgor. Normal color with no rashes, no lesions, and no evidence of cellulitis. MS/ Extremity: Pulses equal, no cyanosis. Neurovascular intact. Full, normal range of motion. Neuro: Awake and alert, GCS 15, oriented to person, place, time, and situation. Cranial nerves II-XII grossly intact. Motor strength 5/5 in all extremities. Sensory grossly intact. Cerebellar exam normal. Normal gait. Psych: Awake, alert, with orientation to person, place and time. Behavior, mood, and affect are within normal limits. 14:48 Constitutional: The patient appears alert, awake, obese. 14:48 ENT: TM's: are normal, Nose: is normal, Posterior pharynx: erythema, that is moderate. 14:48 Respiratory: Exam negative for acute changes. Vital Signs: 14:24 BP 131 / 92; Pulse 114; Resp 22; Temp 99.4; Pulse Ox 98% on R/A; iw 16:15 Pulse 85; Resp 22; Temp 99.6; Pulse Ox 98% ; snw MDM: 14:37 Patient medically screened. snw 16:15 Differential diagnosis: Allergic rhinitis, bronchitis, epiglottitis, pharyngitis, snw tonsillitis, upper respiratory infection. Data reviewed: vital signs, nurses notes, lab test result(s). I considered the following discharge prescriptions or medication management in the emergency department Medications were administered in the Emergency Department. See MAR. Counseling: I had a detailed discussion with the patient and/or guardian regarding: the historical points, exam findings, and any diagnostic results supporting the discharge/admit diagnosis, lab results, the need for outpatient follow up, for definitive care, to return to the emergency department if symptoms worsen or persist or if there are any questions or concerns that arise at home. Special discussion: I have referred the patient to see his PCP for further evaluation of high blood pressure. Based on the history and exam findings, there is no indication for further emergent testing or inpatient evaluation. I discussed with the patient/guardian the need to see the primary care provider for further evaluation of the symptoms. 11/21 14:18 Order name: COVID-19/FLU A+B; Complete Time: 15:58 snw 11/21 14:18 Order name: Strep; Complete Time: 15:31 snw 11/21 15:29 Order name: Throat Culture EDMS 11/21 15:59 Order name: Vital Signs snw Administered Medications: 14:52 Drug: Decadron - Dexamethasone 10 mg {Note: given PO.} Route: IVP; Site: Other; iw 14:52 Drug: Motrin (ibuprofen) Suspension 400 mg Route: PO; iw Disposition: 19:20 Co-signature as Attending Physician, Jorge A RAMÍREZ was immediately available on-site ms3 in the Emergency Department for consultation in the care of the patient. Disposition Summary: 11/21/22 16:14 Discharge Ordered Location: Home snw Condition: Stable snw Diagnosis - Acute bronchitis, unspecified snw - Acute pharyngitis, unspecified snw Followup: snw - With: Private Physician - When: 1 week - Reason: Recheck today's complaints, Continuance of care, Re-evaluation by your physician Followup: snw - With: Emergency Department - When: As needed - Reason: Worsening of condition Discharge Instructions: - Discharge Summary Sheet snw - Acute Bronchitis, Adult snw - Pharyngitis snw - Rehydration, Adult snw Forms: - Medication Reconciliation Form snw - Thank You Letter snw - Antibiotic Education snw - Prescription Opioid Use snw - Work release form snw Prescriptions: - Zyrtec 10 mg Oral Tablet - take 1 tablet by ORAL route once daily As needed; 20 tablet; Refills: 0, snw Product Selection Permitted - Tessalon Perles 100 mg Oral Capsule - take 1 capsule by ORAL route every 8 hours As needed; 15 capsule; Refills: 0, snw Product Selection Permitted - Prednisone 20 mg Oral Tablet - take 2 tablets by ORAL route once daily for 5 days; 10 tablet; Refills: 0, snw Product Selection Permitted - Pepcid 20 mg Oral Tablet - take 1 tablet by ORAL route once daily; 20 tablet; Refills: 0, Product snw Selection Permitted Signatures: Dispatcher [employer] Francesca Hanson, MORENO-C TOP STOP ATTACHER-Csnw Morenita aGrcia, RN RN iw Jorge A Fisher, DO ms3
[2022-11-21 17:33] VITALS: BP 131/92; O2SAT 98
[2022-11-21 17:34] VITALS: TEMP 99.6
== END 2022-11-21 16:35 | disposition home or self-care (01) ==
LOC: ER 13:55
DX: J20.9 Acute bronchitis, unspecified (principal); Z20.822 Contact with and (suspected) exposure to COVID-19
CPT/HCPCS: 0240U; 87070; 87081; 96374; 99282; J1100

== ENCOUNTER 2022-11-26 15:58 | Emergency (ER) | payer SELFPAY ==
[2022-11-26 17:24] LABS: SARS-COV-2 RT PCR NEGATIVE (NEGATIVE)
[2022-11-26 19:03] LABS: Absolute Lymphocytes (CBC) 2.5 K/uL (0.7-4.9); Lymphocytes % 22.3 % (15.3-44.8); MCV 82.9 fL (80-100); MPV 7.8 fL (7.6-11.3); RBC Red Blood Cell Count 5.67 M/uL (4.33-5.43)
[2022-11-26 19:08] LABS: Protime INR 1.05
[2022-11-26] MEDS ORDERED: NA CHLORIDE 0.9% 1,000 ML ONE (19:18)
[2022-11-26 19:20] LABS: Albumin 3.6 g/dL (3.4-5.0); Bilirubin Total 1.3 mg/dL (0.2-1.0); Protein, Total 6.8 g/dL (6.4-8.2)
--- NOTE | 2022-11-26 20:10 | RAD REPORT ---
EXAM DESCRIPTION: Whitney Bettencourt And Brisa (2 Views)11/26/2022 6:03 pm CLINICAL HISTORY: Cough COMPARISON: 2020 FINDINGS: The lungs appear clear of acute infiltrate. The heart is normal size IMPRESSION: No acute abnormalities displayed
--- NOTE | 2022-11-26 20:10 | RAD REPORT ---
EXAM DESCRIPTION: CT - Chest For Pe Angio - 11/26/2022 8:02 pm CLINICAL HISTORY: sob COMPARISON: 2020 TECHNIQUE: Dynamically enhanced axial 3 mm thick images of the chest were obtained during administra tion of 100 mL Isovue 370 IV contrast. Coronal and oblique reconstruction images were generated and r eviewed. Exam utilizes a protocol for optimal evaluation of pulmonary arterial tree. Maximum intensity projections 3D imaging was utilized All CT scans are performed using dose optimization technique as appropriate and may include automated exposure control or mA/KV adjustment according to patient size. FINDINGS: The opacification of pulmonary arteries is suboptimal No gross central pulmonary embolus is seen. A thoracic aortic aneurysm is not noted. A pleural effusion is not seen. A pericardial effusion is not seen. A lung consolidation is not present. IMPRESSION: No gross central pulmonary embolus is seen.
--- NOTE | 2022-11-26 20:17 | RAD REPORT ---
EXAM DESCRIPTION: CT - Soft Tissue Neck W/Contr - 11/26/2022 8:00 pm CLINICAL HISTORY: Neck pain/neck abscess COMPARISON: None. TECHNIQUE: Computed axial tomography of the neck was obtained. 50 cc Isovue 300 was administered in travenously. Coronal and sagittal reconstruction was performed. All CT scans are performed using dose optimization technique as appropriate and may include automated exposure control or mA/KV adjustment according to patient size. FINDINGS: The pharynx, tongue base, larynx and subglottic trachea appear unremarkable The parotid, submandibular and thyroid glands appear unremarkable. No lymphadenopathy is seen No fluid within the sinuses/mastoids. Chronic sinusitis IMPRESSION: No acute abnormality is displayed
--- NOTE | 2022-11-26 20:29 | EDPHYS ---
Physician Documentation [facility] Name: Adal Dunne III Age: 32 yrs Sex: Male : 1990 Arrival Date: 11/26/2022 Time: 16:01 Bed 10 Private MD: ED Physician Denys Arriaga HPI: 11/26 18:20 This 32 yrs old Male presents to ER via Ambulatory with complaints of Sore Throat, snw Cough, Headache. 18:20 The patient presents with sore throat. The patient describes throat pain as scratchy, snw suffocating. Onset: The symptoms/episode began/occurred 2 week(s) ago, and became persistent. Severity of symptoms: At their worst the symptoms were moderate, severe. The patient has experienced a previous episode, last week. The patient has been recently seen by a physician: The patient has been recently seen at the [facility] Emergency Department, last week, for similar complaints labs were performed. Historical: - Allergies: 16:06 No Known Allergies; hb - PMHx: 16:06 broken great toe right; COVID; Migraines; hb - Immunization history:: Adult Immunizations up to date. - Social history:: Smoking status: unknown. ROS: 18:19 Constitutional: Negative for fever, chills, and weight loss, Eyes: Negative for injury, snw pain, redness, and discharge, ENT: Negative for injury,positive for pain Neck: Negative for injury, pain, and swelling, Cardiovascular: Negative for chest pain, palpitations, and edema, Respiratory: positive for shortness of breath, cough, wheezing, and pleuritic chest pain, Abdomen/GI: Negative for abdominal pain, nausea, vomiting, diarrhea, and constipation, Back: Negative for injury and pain, : Negative for injury, bleeding, discharge, and swelling, MS/Extremity: Negative for injury and deformity, Skin: Negative for injury, rash, and discoloration, Neuro: Negative for headache, weakness, numbness, tingling, and seizure. Exam: 18:16 Head/Face: Normocephalic, atraumatic. Eyes: Pupils equal round and reactive to light, snw extra-ocular motions intact. Lids and lashes normal. Conjunctiva and sclera are non-icteric and not injected. Cornea within normal limits. Periorbital areas with no swelling, redness, or edema. 18:16 Neck: Trachea midline, no thyromegaly or masses palpated, and no cervical lymphadenopathy. Supple, full range of motion without nuchal rigidity, or vertebral point tenderness. No Meningismus. Chest/axilla: Normal chest wall appearance and motion. Nontender with no deformity. No lesions are appreciated. Cardiovascular: Regular rate and rhythm with a normal S1 and S2. No gallops, murmurs, or rubs. Normal PMI, no JVD. No pulse deficits. 18:16 Abdomen/GI: Soft, non-tender, with normal bowel sounds. No distension or tympany. No guarding or rebound. No evidence of tenderness throughout. Back: No spinal tenderness. No costovertebral tenderness. Full range of motion. Skin: Warm, dry with normal turgor. Normal color with no rashes, no lesions, and no evidence of cellulitis. MS/ Extremity: Pulses equal, no cyanosis. Neurovascular intact. Full, normal range of motion. Neuro: Awake and alert, GCS 15, oriented to person, place, time, and situation. Cranial nerves II-XII grossly intact. Motor strength 5/5 in all extremities. Sensory grossly intact. Cerebellar exam normal. Normal gait. Psych: Awake, alert, with orientation to person, place and time. Behavior, mood, and affect are within normal limits. 18:16 Constitutional: The patient appears alert, anxious, obese, uncomfortable. 18:16 ENT: TM's: are normal, Nose: is normal, Posterior pharynx: swelling, that is moderate, erythema, that is mild, that is moderate, Voice: is normal. 18:16 Respiratory: mild respiratory distress is noted, Respirations: shallow respirations, that is moderate, Breath sounds: bronchial sounds, that are moderate, are heard diffusely, hoarse, tight cough. Vital Signs: 16:03 BP 170 / 110; Pulse 85; Resp 20; Temp 98.9(TE); Pulse Ox 99% on R/A; Weight 158.76 kg; hb Height 5 ft. 11 in. (180.34 cm); Pain 5/10; 18:30 BP 117 / 78; Pulse 89; Resp 16; Temp 98.3; Pulse Ox 97% on R/A; eh3 19:15 BP 128 / 80; Pulse 82; Resp 16; Pulse Ox 98% on R/A; eh3 20:15 BP 133 / 85; Pulse 78; Resp 15; Pulse Ox 98% on R/A; eh3 16:03 Body Mass Index 48.81 (158.76 kg, 180.34 cm) hb MDM: 16:19 Patient medically screened. snw 18:17 Differential diagnosis: bronchitis, epiglottitis, mononucleosis, retropharyngeal snw abscess. 18:18 Data reviewed: vital signs, nurses notes. Care significantly affected by the following snw chronic conditions: migraines. Counseling: I had a detailed discussion with the patient and/or guardian regarding: the historical points, exam findings, and any diagnostic results supporting the discharge/admit diagnosis. 11/26 16:31 Order name: COVID-19/FLU A+B/RSV; Complete Time: 17:24 hb 11/26 16:31 Order name: Strep; Complete Time: 16:53 hb 11/26 16:55 Order name: Throat Culture EDMN 11/26 18:08 Order name: Blood Culture Adult (2) snw 11/26 18:08 Order name: CBC with Diff; Complete Time: 19:04 snw 11/26 18:08 Order name: CMP; Complete Time: 19:21 snw 11/26 17:24 Order name: Chest Pa And Lat (2 Views) XRAY; Complete Time: 20:11 w 11/26 18:08 Order name: Lactate w/ 2H reflex if indic.; Complete Time: 19:34 w 11/26 18:08 Order name: Protime (+inr); Complete Time: 19:20 w 11/26 18:08 Order name: Ptt, Activated; Complete Time: 19:20 w 11/26 18:08 Order name: CT Soft Tissue Neck W/contr; Complete Time: 20:26 snw 11/26 18:08 Order name: CT Chest For PE Angio; Complete Time: 20:11 w 11/26 18:18 Order name: [place] Screen Profile; Complete Time: 19:23 w 11/26 18:50 Order name: Glucose, Ancillary Testing; Complete Time: 18:52 EDMN 11/26 18:08 Order name: EKG; Complete Time: 18:09 w 11/26 18:08 Order name: Accucheck; Complete Time: 19:12 snw 11/26 18:08 Order name: Cardiac monitoring; Complete Time: 19:12 snw 11/26 18:08 Order name: EKG - Nurse/Tech; Complete Time: 19:12 snw 11/26 18:08 Order name: IV Saline Lock - Large Bore; Complete Time: 19:12 snw 11/26 18:08 Order name: Labs collected and sent; Complete Time: 19:12 snw 11/26 18:08 Order name: O2 Per Protocol; Complete Time: 19:12 snw 11/26 18:08 Order name: O2 Sat Monitoring; Complete Time: 19:12 snw 11/26 18:08 Order name: Vital Signs; Complete Time: 19:12 snw Administered Medications: 19:00 Drug: NS 0.9% 1000 ml Route: IV; Rate: 125 ml/hr; Site: left antecubital; eh3 20:58 Follow up: IV Status: Completed infusion; IV Intake: 200ml eh3 Disposition Summary: 11/26/22 20:28 Discharge Ordered Location: Home snw Condition: Stable snw Diagnosis - Bronchitis, not specified as acute or chronic snw Followup: snw - With: Emergency Department - When: As needed - Reason: Worsening of condition Followup: snw - With: Private Physician - When: 2 - 3 days - Reason: Recheck today's complaints, Continuance of care, Re-evaluation by your physician Discharge Instructions: - Discharge Summary Sheet snw - Acute Bronchitis, Adult snw - Hypertension, Adult snw - How to Use a Metered Dose Inhaler snw - Cool Mist Vaporizer snw - Gastroesophageal Reflux Disease, Adult snw Forms: - Medication Reconciliation Form snw - Thank You Letter snw - Antibiotic Education snw - Prescription Opioid Use snw Prescriptions: - albuterol sulfate 90 mcg/actuation Inhalation HFA aerosol inhaler - inhale 2 puff by INHALATION route every 6 hours for 7 days; 1 vial; Refills: 0, snw Product Selection Permitted - clotrimazole 10 mg Mucous Membrane fiona - take 1 tablet by ORAL route 3 times per day for 10 days; 30 tablet; Refills: 0, snw Product Selection Permitted - Protonix 40 mg Oral Tablet - take 1 tablet by ORAL route once daily; 30 tablet; Refills: 0, Product snw Selection Permitted Signatures: Dispatcher [employer] EDMS Francesca Ureña, MARKING STITCHER-C MARKING STITCHER-Csnw Araseli Fagan, RN RN hb Josephine Solis RN RN eh3
--- NOTE | 2022-11-26 20:29 | ER ---
Nurse's Notes [facility] Name: Adal Dunne III Age: 32 yrs Sex: Male : 1990 Arrival Date: 11/26/2022 Time: 16:01 Bed 10 Private MD: Diagnosis: Bronchitis, not specified as acute or chronic Presentation: 11/26 16:03 Chief complaint: Cough, sore throat, congestion, and nausea x 1 week. Seen last week hb for same s/s, reports feeling much worse over last few days. Coronavirus screen: Client presents with at least one sign or symptom that may indicate coronavirus-19. Provider contacted for isolation considerations. Ebola Screen: No symptoms or risks identified at this time. Initial Sepsis Screen: Does the patient meet any 2 criteria? No. Patient's initial sepsis screen is negative. Does the patient have a suspected source of infection? No. Patient's initial sepsis screen is negative. Risk Assessment: Do you want to hurt yourself or someone else? Patient reports no desire to harm self or others. Onset of symptoms was November 18, 2022. 16:03 Method Of Arrival: Ambulatory 16:03 Acuity: LATIA 3 hb Historical: - Allergies: 16:06 No Known Allergies; hb - PMHx: 16:06 broken great toe right; COVID; Migraines; hb - Immunization history:: Adult Immunizations up to date. - Social history:: Smoking status: unknown. Screenin:15 [facility] ED Fall Risk Assessment (Adult) History of falling in the last 3 months, eh3 including since admission No falls in past 3 months (0 pts) Confusion or Disorientation No (0 pts) Intoxicated or Sedated No (0 pts) Impaired Gait No (0 pts) Mobility Assist Device Used No (0 pt) Altered Elimination No (0 pt) Score/Fall Risk Level 0 - 2 = Low Risk. Abuse screen: Denies threats or abuse. Denies injuries from another. Nutritional screening: No deficits noted. Tuberculosis screening: No symptoms or risk factors identified. Assessment: 18:15 General: Appears in no apparent distress. uncomfortable, Behavior is calm, cooperative, eh3 appropriate for age. Pain: Complains of pain in head, throat. Neuro: Level of Consciousness is awake, alert, obeys commands, Oriented to person, place, time, situation. Cardiovascular: Capillary refill < 3 seconds Patient's skin is warm and dry. Respiratory: Reports cough that is dry, persistent pain with cough Airway is patent Respiratory effort is even, unlabored, Respiratory pattern is regular, symmetrical, Breath sounds are coarse Breath sounds with wheezes bilaterally. GI: No signs and/or symptoms were reported involving the gastrointestinal system. Abdomen is round non-distended. : No signs and/or symptoms were reported regarding the genitourinary system. EENT: Throat is reddened Reports pain when swallowing. Derm: No signs and/or symptoms reported regarding the dermatologic system. Skin is pink, warm \T\ dry. Musculoskeletal: No signs and/or symptoms reported regarding the musculoskeletal system. Circulation, motion, and sensation intact. Range of motion: intact in all extremities. 19:15 Reassessment: Patient appears in no apparent distress at this time. Patient and/or eh3 family updated on plan of care and expected duration. Pain level reassessed. Patient is alert, oriented x 3, equal unlabored respirations, skin warm/dry/pink. 20:15 Reassessment: Patient appears in no apparent distress at this time. Patient and/or eh3 family updated on plan of care and expected duration. Pain level reassessed. Patient is alert, oriented x 3, equal unlabored respirations, skin warm/dry/pink. Vital Signs: 16:03 BP 170 / 110; Pulse 85; Resp 20; Temp 98.9(TE); Pulse Ox 99% on R/A; Weight 158.76 kg; hb Height 5 ft. 11 in. (180.34 cm); Pain 5/10; 18:30 BP 117 / 78; Pulse 89; Resp 16; Temp 98.3; Pulse Ox 97% on R/A; eh3 19:15 BP 128 / 80; Pulse 82; Resp 16; Pulse Ox 98% on R/A; eh3 20:15 BP 133 / 85; Pulse 78; Resp 15; Pulse Ox 98% on R/A; eh3 16:03 Body Mass Index 48.81 (158.76 kg, 180.34 cm) hb Vitals: 18:30 Cardiac Rhythm Assessment Sinus rhythm. [facility] ED Course: 16:01 Patient arrived in ED. rg4 16:04 Francesca Ureña FNP-C is [facility]. snw 16:04 Denys Arriaga MD is Attending Physician. snw 16:06 Triage completed. hb 16:06 Arm band placed on. hb 17:06 Throat Culture Sent. kj1 17:06 COVID-19/FLU A+B/RSV Sent. kj1 18:05 Chest Pa And Lat (2 Views) XRAY In Process Unspecified. EDMS 18:15 Patient has correct armband on for positive identification. Bed in low position. Call eh3 light in reach. Side rails up X2. Client placed on continuous cardiac and pulse oximetry monitoring. NIBP monitoring applied. Door closed. Noise minimized. Lights dimmed. Warm blanket given. 18:19 Josephine Solis, RN is Primary Nurse. eh3 20:01 CT Soft Tissue Neck W/contr In Process Unspecified. EDMS 20:02 CT Chest For PE Angio In Process Unspecified. EDMS 20:57 No provider procedures requiring assistance completed. IV discontinued, intact, eh3 bleeding controlled, No redness/swelling at site. Pressure dressing applied. Administered Medications: 19:00 Drug: NS 0.9% 1000 ml Route: IV; Rate: 125 ml/hr; Site: left antecubital; eh3 20:58 Follow up: IV Status: Completed infusion; IV Intake: 200ml eh3 Medication: 20:57 VIS not applicable for this client. eh3 Intake: 20:58 IV: 200ml; Total: 200ml. eh3 Outcome: 20:28 Discharge ordered by . snw 20:57 Discharged to home ambulatory. eh3 20:57 Condition: stable 20:57 Discharge instructions given to patient, Instructed on discharge instructions, follow up and referral plans. medication usage, Demonstrated understanding of instructions, follow-up care, medications, Prescriptions given X 3. 20:58 Patient left the ED. eh3 Signatures: Dispatcher [employer] EDMS Francesca Ureña, CARE MANAGER CNA-C CARE MANAGER CNA-Csnw Araseli Fagan, RN RN Chelly Petit rg4 Deborah Moya [email or web address] Josephine Solis, ZACHARIAH RN eh3 Corrections: (The following items were deleted from the chart) 16:07 16:03 Chief complaint: Cough, sore throat, congestion, and nausea x 1 week. Seen last hb week for same s/s, reports feeling much worse. hb
[2022-11-26 21:54] VITALS: TEMP 98.3
[2022-11-26 21:55] VITALS: O2SAT 98
[2022-11-26 21:56] VITALS: BP 133/85
--- NOTE | 2022-11-29 17:05 | EKG ---
Test Date: 2022-11-26 Test Time: 18:42:21 [employer] Counter Clerk: MIKALA MEASUREMENT RESULTS: Intervals: Rate: 85 WY: 130 QRSD: 78 QT: 364 QTc: 433 [place]: P: 46 WY: 130 QRS: 56 T: 58 INTERPRETIVE STATEMENTS: Normal sinus rhythm Normal ECG Compared to ECG 05/05/2021 15:44:59 Left ventricular hypertrophy no longer present T-wave abnormality no longer present Electronically Signed On 11-29-22 16:58:36 [employer]ILDREN[employer]S [employer] by Spike Arauz
== END 2022-11-26 20:58 | disposition home or self-care (01) ==
LOC: ER 15:58
DX: J40 Bronchitis, not specified as acute or chronic (principal); Z20.822 Contact with and (suspected) exposure to COVID-19
CPT/HCPCS: 0241U; 36415; 70491; 71046; 71275; 80053; 82947; 83605; 85025; 85610; 85730; 86308; 87040; 87070; 87081; 93005; 96360; 96361; 99284; J7030; Q9967